=== PATIENT | male | born 1950 | race Caucasian/White ===

== ENCOUNTER 2021-12-20 13:15 | Inpatient (IN) ==
[2021-12-20] MEDS ORDERED: THIAMINE HCL 200 MG in SODIUM CHLORIDE 0.9% 50 ML IV STA (14:54)
[2021-12-20] MEDS ORDERED: SODIUM CHLORIDE 0.9% 1000ML 1,000 ML IV ONE ×2 (14:54→17:50)
--- NOTE | 2021-12-20 14:59 | Emergency Department Note ---
Impression & Plan Acute cholecystitis, Vomiting ED Provider Note NAME: VIANEY LANDEROS AGE: 71 SEX: M : 1950 ARRIVES VIA: Ambulance INFORMANT: Patient, ED PROVIDER(S): Gigi Banuelos DO CHIEF COMPLAINT: Altered mental status exam HPI: Patient is a 71-year-old male who presented to the emergency department via ambulance. The story is somewhat confusing as the patient does not know exactly what happened. According to prehospital personnel nursing and the patient's coworker the patient was found in his car and was shaking. It is unsure if the patient was having a seizure. He denies having any complaints at this time. The patient had an episode of emesis prior to arrival. He denies having any abdominal pain. He denies having any recent fevers or trauma. He denies having any recent traveling. The patient states that he was not seen by his family doctor and does not have a family doctor. The patient states that he feels "of f" but cannot describe exactly what is different today. The patient denies any alcohol or drug use. ROS: See above HPI for pertinent positives & negatives. A total of 10 systems reviewed and were otherwise negative. PAST MEDICAL HISTORY: See Below PAST SURGICAL HISTORY: See Below FAMILY HISTORY: See Below SOCIAL HISTORY: See Below HOME MEDICATIONS: See Below ALLERGIES: See Below VITALS: See Below PHYSICAL EXAMINATION: GENERAL: The patient is awake and nonanxious appearing. He is slow to answer questions but answers appropriately. EYES: The conjunctivae are clear. The pupils are round and reactive. EARS, NOSE, MOUTH AND THROAT: The nose is without any evidence of any deformity. NECK: The neck is nontender and supple. RESPIRATORY: Normal respiratory effort is noted there is no evidence of wheezing rhonchi or rales CARDIOVASCULAR: Regular rate and rhythm noted there no murmurs rubs or gallops normal S1 normal S2. GASTROINTESTINAL: The abdomen is soft and nondistended. There is no specific tenderness guarding rigidity. MUSCULOSKELETAL/EXTREMITIES: There is no evidence of gross deformity full range of motion is noted in the hips and shoulders. SKIN: Skin is cool and diaphoretic. Skin is pale. There is no significant pedal edema. NEUROLOGIC: Patient is awake and oriented to person place and situation. Strength is symmetric. Patellar tendon reflexes are 2+ bilaterally. MEDICAL DECISION MAKING: The patient is a 71-year-old male who presented to the emergency department by ambulance. His presentation was somewhat confusing at first. Apparently he was in his car shaking. This did not appear to be consistent with a seizure but he had emesis on his dyer when he presented on my initial evaluation. The patient was very stoic. I think the shaking could have been from rigors from an infectious source. He did have some right upper quadrant abdominal pain to palpation but no guarding or rigidity. Because of his confusing presentation laboratory and radiographic studies were obtained. I discussed the patient's laboratory and radiographic studies with him. He appears to have signs of carly cystitis on CT the abdomen and pelvis. I discussed his case with the on-call general surgeon. The patient was treated with IV fluids and IV antibiotics. He was reevaluated multiple times. Triage Nursing notes reviewed. Prior medical records reviewed Vital Signs: reviewed and remarkable for low blood pressure. Differential diagnosis: Infection, hypoglycemia, electrolyte abnormalities, overdose, toxicologic, cardiac sources, intracerebral event, neurologic, trauma, as well as other pathologies. ER treatment provided: See below Diagnostics interpreted by me: ECG: EKG was obtained in the emergency department. My interpretation is normal sinus rhythm at 95 bpm. There is no ectopy. Nonspecific ST segment depressions were noted especially in the inferior leads. This was compared to a tracing from December 082021. The changes are new compared to the earlier tracing. Cardiac Monitoring: An order was placed for continuous cardiac monitoring. The monitor shows a rate of 89 bpm with sinus rhythm. Laboratory studies: As stated above and show below. Imaging studies: See below Consultation(s): I discussed this case with Dr. Mccollum who is on-call for general surgery. Past Med/Surg History Medical History No significant past medical history Social History Smoking Status: Current every day smoker Tobacco Type: Cigarettes Cigarettes Per Day: 5; Hx Alcohol Use: No Hx Substance Use: No Preferred Language: [place] Communication Ability: Effective Drawing Press Operator Required: No Beliefs That Will Affect Care: Uatsdin Uatsdin Beliefs: jainism Current Living Situation: Homeless Current Living Situation Comment: homeless 10+ years Feels Safe at Home: Yes Allergies Allergies Allergy/AdvReac Type Severity Reaction Status Date / Time No Known Allergies Allergy Verified 12/20/21 17:26 Home Meds Home Medications Medication Instructions Recorded Confirmed ascorbic acid (vitamin C) 500 mg 0 mg PO DAILY 12/08/21 12/20/21 tablet (Vitamin C) cholecalciferol (vitamin D3) 25 0 mcg PO DAILY 12/08/21 12/20/21 mcg (1,000 unit) tablet (Vitamin D3) multivitamin 1 tab PO DAILY 12/08/21 12/20/21 omega-3 fatty acids 1,000 mg PO 2XWK 12/08/21 12/20/21 Results & Data (ED) Vital Signs Vital Signs - 24 hr 12/20/21 13:13 12/20/21 13:40 12/20/21 16:28 Temperature 37.8 C H 37 C 36.7 C Temperature Source Oral Oral Oral Pulse Rate 92 H Pulse Rate [Apical] 88 89 Pulse Rhythm Regular Pulse Rhythm [Apical] Regular Regular Pulse Strength Normal Pulse Strength [Apical] Normal Normal Respiratory Rate 19 18 19 Respiratory Effort / Characteristics Non-Labored Spontaneous Non-Labored Spontaneous Non-Labored Spontaneous Respiratory Depth Normal Normal Normal Respiratory Pattern Regular Blood Pressure 140/58 L Blood Pressure [Right Arm] 114/57 L 111/53 L Blood Pressure Mean 85 Blood Pressure Mean [Right Arm] 76 72 Blood Pressure Position [Right Arm] Lying Pulse Oximetry 97 96 98 Oxygen Delivery Method Room Air Room Air Nasal Cannula Oxymask Aerosol Mask Ambu-Bag BiPAP CPAP Free Flow/Blow- by High Flow Nasal Cannula Oxyhood Mechanical Vent Nasal CPAP Nebulizer Non-rebreather T-Piece Trach Collar Face Tent Other Room Air Sepsis Recent Fever Within 48 Hours No Sepsis New/Unexplained Change in Mental Status No Sepsis Action Taken by Nursing No Action Required Home Medications Current Medication List: was personally reviewed by me Laboratory Data Attestation: I reviewed the patient's lab results. Result diagrams: 12/20/21 13:30 12/20/21 13:30 Lab Results 12/20/21 12/20/21 12/20/21 Range/Units 13:25 13:30 13:30 WBC 4.11 L (4.8-10.8) K/uL RBC 4.31 L (4.7-6.1) M/uL Hgb 13.3 L (14.0-18.0) g/dL Hct 37.9 L (42-52) % MCV 87.9 (80-100) fL MCH 30.9 (25-34) pg MCHC 35.1 (32-36) g/dL RDW Std Deviation 43.1 (36.4-46.3) fL RDW Coeff of Andrew 13.3 (11.5-14.5) % Plt Count 324 (130-400) K/uL MPV 9.6 (7.4-10.4) fL Immature Gran % (Auto) 0.2 % Neut % (Auto) 91.1 % Lymph % (Auto) 7.8 % [place] % (Auto) 0.2 % Eos % (Auto) 0.5 % Baso % (Auto) 0.2 % Neut # (Auto) 3.74 (1.4-6.5) K/uL Lymph # (Auto) 0.32 L (1.2-3.4) K/uL [place] # (Auto) 0.01 L (0.11-0.59) K/uL Eos # (Auto) 0.02 (0-0.5) K/uL Baso # (Auto) 0.01 (0-0.2) K/uL Immature Gran # (Auto) 0.01 (0.00-0.02) K/uL VBG pH (7.36-7.41) VBG pCO2 (38-50) mmHg VBG pO2 mmHg VBG HCO3 mmol/L VBG O2 Saturation % VBG Base Excess mEq/L Barometric Pressure mm/Hg Sodium 139 (136-145) mmol/L Potassium 3.6 (3.5-5.1) mmol/L Chloride 107 (98-107) mmol/L Carbon Dioxide 22 (21-32) mmol/L Anion Gap 10 (3-11) BUN 20 (6-23) mg/dl Creatinine 0.94 (0.6-1.4) mg/dl Est Cr Clr Drug Dosing 72.3 ml/min Est GFR ( Amer) 92.9 ml/min Est GFR (Non-Af Amer) 80.1 ml/min BUN/Creatinine Ratio 21.3 H (10-20) Glucose 123 H (70-99(Fasting)) mg/dl POC Glucose 132 H (70-99) mg/dl Lactate (0.4-2.0) mmol/L Calcium 8.9 (8.5-10.1) mg/dl Total Bilirubin 0.6 (0.2-1.0) mg/dl AST 44 H (13-39) U/L ALT 42 (7-52) U/L Alkaline Phosphatase 95 (34-104) U/L Ammonia Total Protein 6.7 (6.0-8.3) gm/dl Albumin 3.8 (3.4-5.0) gm/dl Globulin 2.9 (2.5-4.0) gm/dl Albumin/Globulin Ratio 1.3 (0.9-2) Lipase 27 (11-82) U/L Urine Color Urine Appearance (Clear) Urine pH (4.5-7.5) Ur Specific [place] (1.000-1.030) Urine Protein (Negative) Urine Glucose (UA) (Negative) Urine Ketones (Negative) Urine Blood (Negative) Urine Nitrite (Negative) Urine Bilirubin (Negative) Urine Urobilinogen (Negative) Ur Leukocyte Esterase (Negative) Urine WBC (Auto) (0-5) /hpf Urine RBC (Auto) (0-4) /hpf U Hyaline Cast (Auto) (0-5) /lpf U Epithel Cells (Auto) (0-5) /lpf Urine Bacteria (Auto) (Negative) Urine Opiates Screen (Neg) Ur Methadone, Qual (Neg) Urine Barbiturates (Neg) Ur Phencyclidine (PCP) (Neg) U Amphetamin/Meth Scrn (Neg) MDMA (Ecstasy) Screen (Neg) U Benzodiazepines Scrn (Neg) Ur Cocaine Metabolite (Neg) U Marijuana (THC) Screen (Neg) Ethyl Alcohol mg/dL (<10.0) mg/dl 12/20/21 12/20/21 12/20/21 Range/Units 14:57 14:59 14:59 WBC (4.8-10.8) K/uL RBC (4.7-6.1) M/uL Hgb (14.0-18.0) g/dL Hct (42-52) % MCV (80-100) fL MCH (25-34) pg MCHC (32-36) g/dL RDW Std Deviation (36.4-46.3) fL RDW Coeff of Andrew (11.5-14.5) % Plt Count (130-400) K/uL MPV (7.4-10.4) fL Immature Gran % (Auto) % Neut % (Auto) % Lymph % (Auto) % [place] % (Auto) % Eos % (Auto) % Baso % (Auto) % Neut # (Auto) (1.4-6.5) K/uL Lymph # (Auto) (1.2-3.4) K/uL [place] # (Auto) (0.11-0.59) K/uL Eos # (Auto) (0-0.5) K/uL Baso # (Auto) (0-0.2) K/uL Immature Gran # (Auto) (0.00-0.02) K/uL VBG pH (7.36-7.41) VBG pCO2 (38-50) mmHg VBG pO2 mmHg VBG HCO3 mmol/L VBG O2 Saturation % VBG Base Excess mEq/L Barometric Pressure mm/Hg Sodium (136-145) mmol/L Potassium (3.5-5.1) mmol/L Chloride (98-107) mmol/L Carbon Dioxide (21-32) mmol/L Anion Gap (3-11) BUN (6-23) mg/dl Creatinine (0.6-1.4) mg/dl Est Cr Clr Drug Dosing ml/min Est GFR ( Amer) ml/min Est GFR (Non-Af Amer) ml/min BUN/Creatinine Ratio (10-20) Glucose (70-99(Fasting)) mg/dl POC Glucose (70-99) mg/dl Lactate 1.1 (0.4-2.0) mmol/L Calcium (8.5-10.1) mg/dl Total Bilirubin (0.2-1.0) mg/dl AST (13-39) U/L ALT (7-52) U/L Alkaline Phosphatase (34-104) U/L Ammonia Cancelled Total Protein (6.0-8.3) gm/dl Albumin (3.4-5.0) gm/dl Globulin (2.5-4.0) gm/dl Albumin/Globulin Ratio (0.9-2) Lipase (11-82) U/L Urine Color Dark Yellow Urine Appearance Clear (Clear) Urine pH 5.0 (4.5-7.5) Ur Specific [place] 1.033 H (1.000-1.030) Urine Protein 1+ H (Negative) Urine Glucose (UA) Negative (Negative) Urine Ketones Negative (Negative) Urine Blood Negative (Negative) Urine Nitrite Negative (Negative) Urine Bilirubin Negative (Negative) Urine Urobilinogen Negative (Negative) Ur Leukocyte Esterase Negative (Negative) Urine WBC (Auto) 1-5 (0-5) /hpf Urine RBC (Auto) 0-4 (0-4) /hpf U Hyaline Cast (Auto) 1-5 (0-5) /lpf U Epithel Cells (Auto) 5-10 H (0-5) /lpf Urine Bacteria (Auto) Negative (Negative) Urine Opiates Screen (Neg) Ur Methadone, Qual (Neg) Urine Barbiturates (Neg) Ur Phencyclidine (PCP) (Neg) U Amphetamin/Meth Scrn (Neg) MDMA (Ecstasy) Screen (Neg) U Benzodiazepines Scrn (Neg) Ur Cocaine Metabolite (Neg) U Marijuana (THC) Screen (Neg) Ethyl Alcohol mg/dL (<10.0) mg/dl 12/20/21 12/20/21 12/20/21 Range/Units 15:37 15:37 16:44 WBC (4.8-10.8) K/uL RBC (4.7-6.1) M/uL Hgb (14.0-18.0) g/dL Hct (42-52) % MCV (80-100) fL MCH (25-34) pg MCHC (32-36) g/dL RDW Std Deviation (36.4-46.3) fL RDW Coeff of Andrew (11.5-14.5) % Plt Count (130-400) K/uL MPV (7.4-10.4) fL Immature Gran % (Auto) % Neut % (Auto) % Lymph % (Auto) % [place] % (Auto) % Eos % (Auto) % Baso % (Auto) % Neut # (Auto) (1.4-6.5) K/uL Lymph # (Auto) (1.2-3.4) K/uL [place] # (Auto) (0.11-0.59) K/uL Eos # (Auto) (0-0.5) K/uL Baso # (Auto) (0-0.2) K/uL Immature Gran # (Auto) (0.00-0.02) K/uL VBG pH 7.48 H (7.36-7.41) VBG pCO2 35 L (38-50) mmHg VBG pO2 50 mmHg VBG HCO3 25 mmol/L VBG O2 Saturation 87.9 % VBG Base Excess 2.0 mEq/L Barometric Pressure 729.7 mm/Hg Sodium (136-145) mmol/L Potassium (3.5-5.1) mmol/L Chloride (98-107) mmol/L Carbon Dioxide (21-32) mmol/L Anion Gap (3-11) BUN (6-23) mg/dl Creatinine (0.6-1.4) mg/dl Est Cr Clr Drug Dosing ml/min Est GFR ( Amer) ml/min Est GFR (Non-Af Amer) ml/min BUN/Creatinine Ratio (10-20) Glucose (70-99(Fasting)) mg/dl POC Glucose (70-99) mg/dl Lactate (0.4-2.0) mmol/L Calcium (8.5-10.1) mg/dl Total Bilirubin (0.2-1.0) mg/dl AST (13-39) U/L ALT (7-52) U/L Alkaline Phosphatase (34-104) U/L Ammonia 33.0 Total Protein (6.0-8.3) gm/dl Albumin (3.4-5.0) gm/dl Globulin (2.5-4.0) gm/dl Albumin/Globulin Ratio (0.9-2) Lipase (11-82) U/L Urine Color Urine Appearance (Clear) Urine pH (4.5-7.5) Ur Specific [place] (1.000-1.030) Urine Protein (Negative) Urine Glucose (UA) (Negative) Urine Ketones (Negative) Urine Blood (Negative) Urine Nitrite (Negative) Urine Bilirubin (Negative) Urine Urobilinogen (Negative) Ur Leukocyte Esterase (Negative) Urine WBC (Auto) (0-5) /hpf Urine RBC (Auto) (0-4) /hpf U Hyaline Cast (Auto) (0-5) /lpf U Epithel Cells (Auto) (0-5) /lpf Urine Bacteria (Auto) (Negative) Urine Opiates Screen (Neg) Ur Methadone, Qual (Neg) Urine Barbiturates (Neg) Ur Phencyclidine (PCP) (Neg) U Amphetamin/Meth Scrn (Neg) MDMA (Ecstasy) Screen (Neg) U Benzodiazepines Scrn (Neg) Ur Cocaine Metabolite (Neg) U Marijuana (THC) Screen (Neg) Ethyl Alcohol mg/dL < 10.0 (<10.0) mg/dl 12/20/21 Range/Units Unknown WBC (4.8-10.8) K/uL RBC (4.7-6.1) M/uL Hgb (14.0-18.0) g/dL Hct (42-52) % MCV (80-100) fL MCH (25-34) pg MCHC (32-36) g/dL RDW Std Deviation (36.4-46.3) fL RDW Coeff of Andrew (11.5-14.5) % Plt Count (130-400) K/uL MPV (7.4-10.4) fL Immature Gran % (Auto) % Neut % (Auto) % Lymph % (Auto) % [place] % (Auto) % Eos % (Auto) % Baso % (Auto) % Neut # (Auto) (1.4-6.5) K/uL Lymph # (Auto) (1.2-3.4) K/uL [place] # (Auto) (0.11-0.59) K/uL Eos # (Auto) (0-0.5) K/uL Baso # (Auto) (0-0.2) K/uL Immature Gran # (Auto) (0.00-0.02) K/uL VBG pH (7.36-7.41) VBG pCO2 (38-50) mmHg VBG pO2 mmHg VBG HCO3 mmol/L VBG O2 Saturation % VBG Base Excess mEq/L Barometric Pressure mm/Hg Sodium (136-145) mmol/L Potassium (3.5-5.1) mmol/L Chloride (98-107) mmol/L Carbon Dioxide (21-32) mmol/L Anion Gap (3-11) BUN (6-23) mg/dl Creatinine (0.6-1.4) mg/dl Est Cr Clr Drug Dosing ml/min Est GFR ( Amer) ml/min Est GFR (Non-Af Amer) ml/min BUN/Creatinine Ratio (10-20) Glucose (70-99(Fasting)) mg/dl POC Glucose (70-99) mg/dl Lactate (0.4-2.0) mmol/L Calcium (8.5-10.1) mg/dl Total Bilirubin (0.2-1.0) mg/dl AST (13-39) U/L ALT (7-52) U/L Alkaline Phosphatase (34-104) U/L Ammonia Total Protein (6.0-8.3) gm/dl Albumin (3.4-5.0) gm/dl Globulin (2.5-4.0) gm/dl Albumin/Globulin Ratio (0.9-2) Lipase (11-82) U/L Urine Color Urine Appearance (Clear) Urine pH (4.5-7.5) Ur Specific [place] (1.000-1.030) Urine Protein (Negative) Urine Glucose (UA) (Negative) Urine Ketones (Negative) Urine Blood (Negative) Urine Nitrite (Negative) Urine Bilirubin (Negative) Urine Urobilinogen (Negative) Ur Leukocyte Esterase (Negative) Urine WBC (Auto) (0-5) /hpf Urine RBC (Auto) (0-4) /hpf U Hyaline Cast (Auto) (0-5) /lpf U Epithel Cells (Auto) (0-5) /lpf Urine Bacteria (Auto) (Negative) Urine Opiates Screen Neg (Neg) Ur Methadone, Qual Neg (Neg) Urine Barbiturates Neg (Neg) Ur Phencyclidine (PCP) Neg (Neg) U Amphetamin/Meth Scrn Neg (Neg) MDMA (Ecstasy) Screen Neg (Neg) U Benzodiazepines Scrn Neg (Neg) Ur Cocaine Metabolite Neg (Neg) U Marijuana (THC) Screen Neg (Neg) Ethyl Alcohol mg/dL (<10.0) mg/dl Administered Medications Discontinued Medications Sodium Chloride (Nss 1000ml) 1,000 mls @ 999 mls/hr IV .[id number] ONE Stop: 12/20/21 15:54 Last Admin: 12/20/21 16:25 Dose: 999 mls/hr Documented by: [id number] Imaging Data Radiologist's Impression: Abdomen/Pelvis CT 12/20/21 14:54 CT SCAN OF THE ABDOMEN AND PELVIS WITHOUT IV CONTRAST CLINICAL HISTORY: Nausea and vomiting. COMPARISON STUDY: Abdominal CT dated 12/08/2021. TECHNIQUE: CT scan of the abdomen and pelvis is performed from the lung bases to the proximal femora. Images are reviewed in the axial, sagittal, and coronal planes. IV contrast was not administered for this examination. Note that the examination was performed in suboptimal fashion without oral and IV contrast. A dose lowering technique was utilized adhering to the principles of ALARA. FINDINGS: Lung bases: The heart is mildly enlarged and without pericardial effusion. There are coronary artery calcifications. The lung bases are clear noting dependent atelectasis. Liver: The unenhanced liver is enlarged, measuring 21.1 cm in length. The liver is otherwise normal in contour and attenuation. There is no intrahepatic biliary ductal dilatation. Periportal edema is noted. Gallbladder: The gallbladder is mildly distended. The gallbladder wall is thicke beverly and there is pericholecystic inflammation and fluid. Findings are consistent with acute cholecystitis. Spleen: Normal in size and attenuation. Pancreas: Calcifications of the pancreatic head are unchanged. The unenhanced pancreas is otherwise grossly unremarkable. Adrenal glands: Unremarkable. Kidneys: The unenhanced kidneys are normal in size and without hydronephrosis. There are no renal calculi identified. There is no evidence of contour deforming renal mass lesion. Abdominal vasculature: The abdominal aorta is normal in course and caliber noting mild to moderate atherosclerotic calcification. Bowel: There are scattered colonic diverticula without CT evidence of acute diverticulitis. No bowel obstruction is seen. Mild fecal retention is noted in the colon. A tiny duodenal diverticulum is incidentally noted. The appendix is well-visualized and normal. Peritoneum: There is no intraperitoneal free air or abdominal ascites. Lymphadenopathy: None. Pelvic viscera: The prostate gland is mildly enlarged and heterogeneous noting median lobe hypertrophy. The bladder wall is thickened and trabeculated indicating chronic outlet obstruction. Skeletal structures: The skeletal structures are osteopenic. There is mild lumbosacral spondylosis. No lytic or blastic lesions are seen. IMPRESSION: 1. Findings are consistent with severe acute cholecystitis. Surgical consultation is advised. 2. There is no intra or extrahepatic biliary ductal dilatation. 3. Mild hepatomegaly. 4. Additional findings as above. ACT 112: Negative or not required by law. Electronically signed by: Max Finney M.D. 12/20/2021 5:[address] 12/20/21 14:54 CT SCAN OF THE CERVICAL SPINE CLINICAL HISTORY: Change in mental status. Neck pain. COMPARISON STUDY: No priors. TECHNIQUE: CT scan of the cervical spine is performed from the skull base to the upper thoracic spine. Images are reviewed in the axial, sagittal, and coronal planes. IV contrast was not administered for this examination. A dose lowering technique was utilized adhering to the principles of ALARA. CT DOSE: 1620.03 mGy.cm FINDINGS: Skeletal structures: The skeletal structures are osteopenic. There is no evidence of fracture or subluxation involving the cervical spine. Vertebral body height and alignment are maintained. There are tiny anterior osteophytes. The odontoid process and lateral masses are intact. The atlantoaxial articulation is preserved noting mild productive degenerative change. The spinous processes appear intact. There is mild multilevel facet arthropathy. Intervertebral discs: Minimal disc space narrowing is seen throughout the cervical spine. Central canal: Posterior disc osteophyte complexes at C3-C4, C4-C5, and C5-C6 may contribute to mild acquired compromise the central canal. Soft tissues: The prevertebral and paraspinous soft tissues are within normal limits. There is mild atherosclerotic calcification of the carotid bulbs. Calvarium: The visualized calvarium at the skull base appears intact. Brain parenchyma: Partially visualized brain parenchyma at the skull base is within normal limits. Sinuses and mastoids: The visualized paranasal sinuses are clear. The mastoid air cells are well pneumatized. Lung apices: There is a calcified granuloma at the left apex. Apical lung parenchyma is otherwise clear as visualized. IMPRESSION: No acute osseous abnormality is seen involving the cervical spine. ACT 112: Negative or not required by law. Electronically signed by: Max Finney M.D. 12/20/2021 5:[address] 12/20/21 14:54 CT SCAN OF THE BRAIN WITHOUT IV CONTRAST CLINICAL HISTORY: Change in mental status. COMPARISON STUDY: No priors. TECHNIQUE: Unenhanced axial CT scan of the brain is performed from the vertex to the skull base. A dose lowering technique was utilized adhering to the principles of ALARA. FINDINGS: Brain parenchyma: There are age-related involutional changes noting minimal subcortical and periventricular microangiopathic change. There is no hemorrhage, mass effect, or evidence of acute territorial ischemia by CT criteria. Carrizales- white matter differentiation is preserved. No extra-axial fluid collection is seen. Ventricles, sulci, cisterns: Prominent secondary to involutional change. Intracranial vasculature: There is atherosclerotic calcification of the cavernous carotid and vertebral arteries. Calvarium: Unremarkable. Soft tissues: A 1.7 cm calcified sebaceous cyst is noted in the right posterior scalp. Sinuses and mastoids: The visualized paranasal sinuses are clear. The mastoid air cells are well pneumatized. Orbits: The bony orbits are grossly intact. IMPRESSION: There is no hemorrhage, mass effect, or evidence of acute territorial ischemia by CT criteria. ACT 112: Negative or not required by law. Electronically signed by: Max Finney M.D. 12/20/2021 5:18 PM Chest X-Ray 12/20/21 14:56 XR chest 1V portable CLINICAL HISTORY: Altered mental status. COMPARISON STUDY: No previous studies for comparison. FINDINGS: Lung volumes are normal. Lungs are clear. There is no pneumothorax or pleural effusion. Cardiac size is normal. Mediastinal contours are normal. There is no evidence for pulmonary edema. IMPRESSION: No acute cardiopulmonary findings. ACT 112: Negative or not required by law. Electronically signed by: Jacob Lozada M.D. 12/20/2021 3:44 PM Discharge Plan Visit Data Chief Complaint: Illness ED Provider: Gigi Banuelos Discharge Problem: Acute cholecystitis, Vomiting Patient Disposition: Being Evaluated by Surgeon Forms Stand Alone Forms: [facility] [place] Prescriptions Prescriptions: No Action multivitamin Tablet 1 tab PO DAILY RF: 0 ascorbic acid (vitamin C) [Vitamin C] 500 mg Tablet 0 mg PO DAILY RF: 0 Fish Oil Capsule 1,000 mg PO 2XWK RF: 0 cholecalciferol (vitamin D3) [Vitamin D3] 25 mcg (1,000 unit) Tablet 0 mcg PO DAILY RF: 0 Referrals Referrals: PCP,NO [Primary Care Provider] -
[2021-12-20 15:44] LABS: Basophils # (auto) 0.01 K/uL (0-0.2); Basophils % (auto) 0.2 %; Eosinophils # (auto) 0.02 K/uL (0-0.5); Eosinophils % (auto) 0.5 %; Hematocrit (blood only) 37.9 % (42-52); Hemoglobin 13.3 g/dL (14.0-18.0); Immature Granulocytes # (auto) 0.01 K/uL (0.00-0.02); Immature Granulocytes % (auto) 0.2 %; Lymphocytes # (auto) 0.32 K/uL (1.2-3.4); Lymphocytes % (auto) 7.8 %; Mean Corpuscular Hemoglobin 30.9 pg (25-34); Mean Corpuscular Hgb Conc 35.1 g/dL (32-36); Mean Corpuscular Volume 87.9 fL (80-100); Mean Platelet Volume 9.6 fL (7.4-10.4); Monocytes # (auto) 0.01 K/uL (0.11-0.59); Monocytes % (auto) 0.2 %; Neutrophils # (auto) 3.74 K/uL (1.4-6.5); Neutrophils % (auto) 91.1 %; Platelet Count 324 K/uL (130-400); RDW Coefficient of Variation 13.3 % (11.5-14.5); RDW Standard Deviation 43.1 fL (36.4-46.3); Red Blood Count 4.31 M/uL (4.7-6.1); White Blood Count 4.11 K/uL (4.8-10.8)
--- NOTE | 2021-12-20 15:46 | XRay Report ---
XR chest 1V portable CLINICAL HISTORY: Altered mental status. COMPARISON STUDY: No previous studies for comparison. FINDINGS: Lung volumes are normal. Lungs are clear. There is no pneumothorax or pleural effusion. Car diac size is normal. Mediastinal contours are normal. There is no evidence for pulmonary edema. IMPRESSION: No acute cardiopulmonary findings. ACT 112: Negative or not required by law. Electronically signed by: Jacob Lozada M.D. 12/20/2021 3:44 PM
[2021-12-20 15:59] LABS: Oxygen Saturation VBG 87.9 %; pH VBG 7.48 (7.36-7.41)
[2021-12-20 16:32] LABS: Appearance Urine Clear (Clear); Bacteria Urine Automated Negative (Negative); Bilirubin Urine Negative (Negative); Blood Urine Negative (Negative); Color Urine Dark Yellow; Glucose Urine UA Negative (Negative); Ketones Urine Negative (Negative); Leukocyte Esterase Urine Negative (Negative); Nitrite Urine Negative (Negative); Protein Urine 1+ (Negative); RBC Urine Automated 0-4 /hpf (0-4); Specific Gravity Urine 1.033 (1.000-1.030); Urobilinogen Urine Negative (Negative)
[2021-12-20 16:42] LABS: Albumin Globulin Ratio 1.3 (0.9-2); Albumin Level 3.8 gm/dl (3.4-5.0); BUN Creatinine Ratio 21.3 (10-20); Bilirubin,Total 0.6 mg/dl (0.2-1.0); Calcium 8.9 mg/dl (8.5-10.1); Creatinine Clr Calc Pharmacy 72.3 ml/min; Est GFR (African American) 92.9 ml/min; Est GFR (Non-African American) 80.1 ml/min; Globulin 2.9 gm/dl (2.5-4.0); Potassium 3.6 mmol/L (3.5-5.1); Total Protein 6.7 gm/dl (6.0-8.3)
[2021-12-20 16:57] LABS: Amphetamines+Metham, Urine Neg (Neg); Barbiturates, Urine Neg (Neg); Benzodiazepine, Urine Neg (Neg); Cocaine, Urine Neg (Neg); MDMA (Ecstacy), Urine Neg (Neg); Methadone, Urine Neg (Neg); Opiate, Urine Neg (Neg); Phencyclidine, Urine Neg (Neg)
--- NOTE | 2021-12-20 17:20 | CT Scan Report ---
CT SCAN OF THE BRAIN WITHOUT IV CONTRAST CLINICAL HISTORY: Change in mental status. COMPARISON STUDY: No priors. TECHNIQUE: Unenhanced axial CT scan of the brain is performed from the vertex to the skull base. A do se lowering technique was utilized adhering to the principles of ALARA. FINDINGS: Brain parenchyma: There are age-related involutional changes noting minimal subcortical and perivent ricular microangiopathic change. There is no hemorrhage, mass effect, or evidence of acute territoria l ischemia by CT criteria. Carrizales-white matter differentiation is preserved. No extra-axial fluid colle ction is seen. Ventricles, sulci, cisterns: Prominent secondary to involutional change. Intracranial vasculature: There is atherosclerotic calcification of the cavernous carotid and vertebr al arteries. Calvarium: Unremarkable. Soft tissues: A 1.7 cm calcified sebaceous cyst is noted in the right posterior scalp. Sinuses and mastoids: The visualized paranasal sinuses are clear. The mastoid air cells are well pneu matized. Orbits: The bony orbits are grossly intact. IMPRESSION: There is no hemorrhage, mass effect, or evidence of acute territorial ischemia by CT fadi kraft. ACT 112: Negative or not required by law. Electronically signed by: Max Finney M.D. 12/20/2021 5:18 PM
--- NOTE | 2021-12-20 17:25 | CT Scan Report ---
CT SCAN OF THE CERVICAL SPINE CLINICAL HISTORY: Change in mental status. Neck pain. COMPARISON STUDY: No priors. TECHNIQUE: CT scan of the cervical spine is performed from the skull base to the upper thoracic spine . Images are reviewed in the axial, sagittal, and coronal planes. IV contrast was not administered fo r this examination. A dose lowering technique was utilized adhering to the principles of ALARA. CT DOSE: 1620.03 mGy.cm FINDINGS: Skeletal structures: The skeletal structures are osteopenic. There is no evidence of fracture or subl uxation involving the cervical spine. Vertebral body height and alignment are maintained. There are t iny anterior osteophytes. The odontoid process and lateral masses are intact. The atlantoaxial articu lation is preserved noting mild productive degenerative change. The spinous processes appear intact. There is mild multilevel facet arthropathy. Intervertebral discs: Minimal disc space narrowing is seen throughout the cervical spine. Central canal: Posterior disc osteophyte complexes at C3-C4, C4-C5, and C5-C6 may contribute to mild acquired compromise the central canal. Soft tissues: The prevertebral and paraspinous soft tissues are within normal limits. There is mild a therosclerotic calcification of the carotid bulbs. Calvarium: The visualized calvarium at the skull base appears intact. Brain parenchyma: Partially visualized brain parenchyma at the skull base is within normal limits. Sinuses and mastoids: The visualized paranasal sinuses are clear. The mastoid air cells are well pneu matized. Lung apices: There is a calcified granuloma at the left apex. Apical lung parenchyma is otherwise wendi ar as visualized. IMPRESSION: No acute osseous abnormality is seen involving the cervical spine. ACT 112: Negative or not required by law. Electronically signed by: Max Finney M.D. 12/20/2021 5:23 PM
--- NOTE | 2021-12-20 17:45 | CT Scan Report ---
CT SCAN OF THE ABDOMEN AND PELVIS WITHOUT IV CONTRAST CLINICAL HISTORY: Nausea and vomiting. COMPARISON STUDY: Abdominal CT dated 12/08/2021. TECHNIQUE: CT scan of the abdomen and pelvis is performed from the lung bases to the proximal femora. Images are reviewed in the axial, sagittal, and coronal planes. IV contrast was not administered for this examination. Note that the examination was performed in suboptimal fashion without oral and IV contrast. A dose lowering technique was utilized adhering to the principles of ALARA. FINDINGS: Lung bases: The heart is mildly enlarged and without pericardial effusion. There are coronary artery calcifications. The lung bases are clear noting dependent atelectasis. Liver: The unenhanced liver is enlarged, measuring 21.1 cm in length. The liver is otherwise normal i n contour and attenuation. There is no intrahepatic biliary ductal dilatation. Periportal edema is no tenisha. Gallbladder: The gallbladder is mildly distended. The gallbladder wall is thickened and there is maggi cholecystic inflammation and fluid. Findings are consistent with acute cholecystitis. Spleen: Normal in size and attenuation. Pancreas: Calcifications of the pancreatic head are unchanged. The unenhanced pancreas is otherwise g rossly unremarkable. Adrenal glands: Unremarkable. Kidneys: The unenhanced kidneys are normal in size and without hydronephrosis. There are no renal marjan culi identified. There is no evidence of contour deforming renal mass lesion. Abdominal vasculature: The abdominal aorta is normal in course and caliber noting mild to moderate at herosclerotic calcification. Bowel: There are scattered colonic diverticula without CT evidence of acute diverticulitis. No bowel obstruction is seen. Mild fecal retention is noted in the colon. A tiny duodenal diverticulum is inci dentally noted. The appendix is well-visualized and normal. Peritoneum: There is no intraperitoneal free air or abdominal ascites. Lymphadenopathy: None. Pelvic viscera: The prostate gland is mildly enlarged and heterogeneous noting median lobe hypertroph y. The bladder wall is thickened and trabeculated indicating chronic outlet obstruction. Skeletal structures: The skeletal structures are osteopenic. There is mild lumbosacral spondylosis. N o lytic or blastic lesions are seen. IMPRESSION: 1. Findings are consistent with severe acute cholecystitis. Surgical consultation is advised. 2. There is no intra or extrahepatic biliary ductal dilatation. 3. Mild hepatomegaly. 4. Additional findings as above. ACT 112: Negative or not required by law. Electronically signed by: Max Finney M.D. 12/20/2021 5:42 PM
[2021-12-20] MEDS ORDERED: PIPERACILL/TAZOBAC CONSULT ACTIVE PRN ×2 (17:50→20:40)
[2021-12-20] MEDS ORDERED: PIPERACILLIN/TAZOBACTAM 4.5 GM/120 ML BAG IV ONE (17:50)
--- NOTE | 2021-12-20 19:13 | History & Physical Report ---
Date of Service December 20, 2021 Assessment & Plan (1) Abnormal CT of the abdomen: Plan: 71 yr old man with possible severe acute cholecystitis on CT scan but minimal pain or tenderness on exam. Will treat with IV abx. Discussed checking HIDA scan to confirm acute cholecystitis as his clinical presentation does not match his CT findings well. Should HIDA confirm acute cholecystitis then we discussed the benefit of laparoscopic cholecystectomy. Risks of conversion to open, bile leak, diarrhea with need for medications to control briefly reviewed. All questions answered. Will keep npo until results are back. Present on Admission?: Yes History of Present Illness Chief Complaint: shakes/ memory loss Primary Care Provider: NO PCP 71 yr old man who was brought by ambulance to the ER when a coworker found him in his car, confused and with severe shakes/ rigors. Pt notes his memory is limited for the event and he feels "unfocused". He does recall that he had some epigastric abdominal pain intermittently in the few days prior to the event. No nausea or vomiting at that time but he did have a bout of emesis in the ambulance. He was seen in the ER on 12/15/2020 and again on 12/08/2021 for epigastric abdominal pain. CT scans on both occasions were negative. He denies a ny change in bowel habits. No family history of gallbladder disease. No prior abdominal operations. Currently, he denies any abdominal pain. No nausea or vomiting. No further chills. Main remaining symptom is that of memory issues with loss of focus/ cloudy feeling. Allergies Allergy/AdvReac Type Severity Reaction Status Date / Time No Known Allergies Allergy Verified 12/20/21 17:26 Home Medications Medication Instructions Recorded Confirmed Type ascorbic acid (vitamin C) 500 mg 0 mg PO DAILY 12/08/21 12/20/21 History tablet (Vitamin C) cholecalciferol (vitamin D3) 25 0 mcg PO DAILY 12/08/21 12/20/21 History mcg (1,000 unit) tablet (Vitamin D3) multivitamin 1 tab PO DAILY 12/08/21 12/20/21 History omega-3 fatty acids 1,000 mg PO 2XWK 12/08/21 12/20/21 History Past Med/Surg History Medical History No significant past medical history Social History Smoking Status: Current every day smoker Tobacco Type: Cigarettes Cigarettes Per Day: 5; Hx Alcohol Use: No Hx Substance Use: No Preferred Language: Welsh Communication Ability: Effective Sas Etl Developer Required: No Beliefs That Will Affect Care: Mormon Mormon Beliefs: buddhism Current Living Situation: Homeless Current Living Situation Comment: homeless 10+ years Feels Safe at Home: Yes Review of Systems Constitutional: + chills; no fever Eyes: no problem reported Ear, Nose, Mouth, Throat: no problem reported Respiratory: no problem reported Cardiovascular: no problem reported Gastrointestinal: as per Subjective / HPI Genitourinary: no problem reported Musculoskeletal: no problem reported Neurologic: + confusion and + memory loss; no gait abnormality, no generalized weakness, no abnormal movements and no abnormal speech Psychiatric: no problem reported Physical Exam Constitutional: WD/WN, vitals as above Eyes: PERRL, conjunctivae normal, anicteric sclerae Neck: trachea midline, no thyromegaly Respiratory: normal respiratory effort, lungs clear to auscultation Cardiovascular: RRR, no murmur, no edema Gastrointestinal (Abdomen): normal bowel sounds, soft, nontender, no hepatosplenomegaly Musculoskeletal: Extremities: extremities normal to inspection Neurologic: moves all extremities and awake; no focal motor deficits slow to answer questions Psychiatric: A+Ox3, euthymic affect Results & Data Results & Data ([facility]) Vital Signs (Past 12 Hours) Vital Signs Temp Pulse Pulse Resp BP BP Pulse Ox 12/20/21 18:00 36.9 C 84 20 134/72 96 12/20/21 16:28 36.7 C 89 19 111/53 L 98 12/20/21 13:40 37 C 92 H 18 140/58 L 96 12/20/21 13:13 37.8 C H 88 19 114/57 L 97 Laboratory Results Abnormal lab results 12/20/21 12/20/21 12/20/21 Range/Units 13:25 13:30 13:30 WBC 4.11 L (4.8-10.8) K/uL RBC 4.31 L (4.7-6.1) M/uL Hgb 13.3 L (14.0-18.0) g/dL Hct 37.9 L (42-52) % Lymph # (Auto) 0.32 L (1.2-3.4) K/uL [place] # (Auto) 0.01 L (0.11-0.59) K/uL VBG pH (7.36-7.41) VBG pCO2 (38-50) mmHg BUN/Creatinine Ratio 21.3 H (10-20) Glucose 123 H (70-99(Fasting)) mg/dl POC Glucose 132 H (70-99) mg/dl AST 44 H (13-39) U/L Ur Specific [place] (1.000-1.030) Urine Protein (Negative) U Epithel Cells (Auto) (0-5) /lpf 12/20/21 12/20/21 Range/Units 14:57 15:37 WBC (4.8-10.8) K/uL RBC (4.7-6.1) M/uL Hgb (14.0-18.0) g/dL Hct (42-52) % Lymph # (Auto) (1.2-3.4) K/uL [place] # (Auto) (0.11-0.59) K/uL VBG pH 7.48 H (7.36-7.41) VBG pCO2 35 L (38-50) mmHg BUN/Creatinine Ratio (10-20) Glucose (70-99(Fasting)) mg/dl POC Glucose (70-99) mg/dl AST (13-39) U/L Ur Specific [place] 1.033 H (1.000-1.030) Urine Protein 1+ H (Negative) U Epithel Cells (Auto) 5-10 H (0-5) /lpf Diagnostic Findings CT SCAN OF THE ABDOMEN AND PELVIS WITHOUT IV CONTRAST CLINICAL HISTORY: Nausea and vomiting. COMPARISON STUDY: Abdominal CT dated 12/08/2021. TECHNIQUE: CT scan of the abdomen and pelvis is performed from the lung bases to the proximal femora. Images are reviewed in the axial, sagittal, and coronal planes. IV contrast was not administered for this examination. Note that the examination was performed in suboptimal fashion without oral and IV contrast. A dose lowering technique was utilized adhering to the principles of ALARA. FINDINGS: Lung bases: The heart is mildly enlarged and without pericardial effusion. There are coronary artery calcifications. The lung bases are clear noting dependent atelectasis. Liver: The unenhanced liver is enlarged, measuring 21.1 cm in length. The liver is otherwise normal in contour and attenuation. There is no intrahepatic biliary ductal dilatation. Periportal edema is noted. Gallbladder: The gallbladder is mildly distended. The gallbladder wall is thickened and there is pericholecystic inflammation and fluid. Findings are consistent with acute cholecystitis. Spleen: Normal in size and attenuation. Pancreas: Calcifications of the pancreatic head are unchanged. The unenhanced pancreas is otherwise grossly unremarkable. Adrenal glands: Unremarkable. Kidneys: The unenhanced kidneys are normal in size and without hydronephrosis. There are no renal calculi identified. There is no evidence of contour deforming renal mass lesion. Abdominal vasculature: The abdominal aorta is normal in course and caliber noting mild to moderate atherosclerotic calcification. Bowel: There are scattered colonic diverticula without CT evidence of acute diverticulitis. No bowel obstruction is seen. Mild fecal retention is noted in the colon. A tiny duodenal diverticulum is incidentally noted. The appendix is well-visualized and normal. Peritoneum: There is no intraperitoneal free air or abdominal ascites. Lymphadenopathy: None. Pelvic viscera: The prostate gland is mildly enlarged and heterogeneous noting median lobe hypertrophy. The bladder wall is thickened and trabeculated indicating chronic outlet obstruction. Skeletal structures: The skeletal structures are osteopenic. There is mild lumbosacral spondylosis. No lytic or blastic lesions are seen. IMPRESSION: 1. Findings are consistent with severe acute cholecystitis. Surgical consultation is advised. 2. There is no intra or extrahepatic biliary ductal dilatation. 3. Mild hepatomegaly. CT scan head and C spine normal. CXR OK. Code Status & VTE Plan VTE Prophylaxis Plan VTE Prophylaxis will be ordered: No
[2021-12-20] MEDS ORDERED: MoRPHine SULFATE 2 MG/ML CARP IV PRN (20:40)
[2021-12-20] MEDS ORDERED: ONDANSETRON INJ 2 MG/ML 2 ML VIAL IV PRN (20:40)
[2021-12-20] MEDS ORDERED: oxyCODONE/ACETAMINOPHEN 5mg/325mg TAB PO PRN ×2 (20:40)
[2021-12-20] MEDS ORDERED: MoRPHine SULFATE 4 MG/ML 1 ML CARP\\VIAL IV PRN (20:40)
[2021-12-20] MEDS: LACTATED RINGER'S 1,000 ML IV SCH (21:00)
--- NOTE | 2021-12-20 22:44 | Electrocardiogram Report ---
Test Reason : Blood Pressure : / mmHG Vent. Rate : 095 BPM Atrial Rate : 095 BPM P-R Int : 148 ms QRS Dur : 076 ms QT Int : 394 ms P-R-T Axes : 073 060 074 degrees QTc Int : 495 ms Normal sinus rhythm Prolonged QT Nonspecific T wave abnormality Abnormal ECG When compared with ECG of 08-DEC-2021 02:49, Vent. rate has increased BY 42 BPM QT has lengthened Confirmed by Neville Patterson ([id number]) on 12/20/2021 10:43:49 PM Referred By: REFERRED SELF Confirmed By:Neville Patterson
[2021-12-20] MEDS: PIPERACILLIN/TAZOBACTAM 3.375 GM in DEXTROSE 5% 100 ML IV SCH (23:45)
[2021-12-20 23:49] LABS: Base Excess ABG -0.1 mEq/L (-9-1.8); HCO3 ABG 22 mmol/L (19-24); Oxygen Saturation ABG 95.6 % (90-95); PCO2 ABG 29 mmHg (35-46); PO2 ABG 69 mmHg (80-95)
[2021-12-20 23:52] LABS: Allen Test POS (Pos)
[2021-12-21 00:36] LABS: Influenza A virus by PCR Negative (Neg); Influenza B virus by PCR Negative (Neg); RSV by PCR Negative (Neg); SARS CoV2 RNA(COVID-19) InHosp NEGATIVE (Negative)
--- NOTE | 2021-12-21 01:25 | Consultation Report ---
DATE OF CONSULTATION: 12/20/2021. CHIEF COMPLAINT: Shaking chills, possible cholecystitis. HISTORY OF PRESENT ILLNESS: This is a 71-year-old male with no significant past medical history, who presents with shaking chills, violent shaking. The patient states he is here because of violent shaking. The patient is somewhat of a poor historian, speaking in low voices and taking time to answer, but seems to be alert and oriented, answering appropriately, but could not give much history. Says his hands were violently shaking, that is why he is here. Afebrile, seems to have some cough. He states he smokes quarter pack a day. He has some headache, some blurred visions. He attributes it to not eating anything for the last 24 hours. No nausea, no vomiting, no chest pain, no shortness of breath, no abdominal pain. Normal bowel and bladder movements. Hemodynamics are okay. The patient was here with abdominal pain on 12/08/2021. At that time, a CT scan was done, it was unremarkable and he was sent home. Today CAT scan is showing acute cholecystitis. Surgery admitted the patient, planning for HIDA scan, and he is on fluids and Zosyn. The patient was in the hospital in December of 2020 with acute gallstone pancreatitis, but signed out AMA at that time. His venous blood gases are okay in the ER. Labs showed some mild leukopenia and lymphopenia. Liver function and creatinine are okay. Urinalysis negative. Urine drug screen is negative. Urine ethyl alcohol level is less than 10. SARS-CoV-2 rapid test is negative. ALLERGIES: No known drug allergies. PAST MEDICAL HISTORY: The patient denies any past medical history. PAST SURGICAL HISTORY: Could not get any surgical history. MEDICATIONS: Seems to be taking multivitamins, vitamin D, omega fish oil, and vitamin C. FAMILY HISTORY: Says there is a history of cancer and heart disease in the family. SOCIAL HISTORY: Smokes 1/4 pack a day. Denies any alcohol use. REVIEW OF SYSTEMS: As per HPI. Could not get complete review of systems. The patient is somewhat of a poor historian. PHYSICAL EXAMINATION: GENERAL: The patient is alert, awake, and oriented x3, but answers in a low voice and takes time to answer. VITAL SIGNS: Temperature 37, pulse 80, respiratory rate 16, blood pressure 148/71, oxygen 96% on room air. HEENT: Atraumatic. Speech has low voice. Has no facial droop. CARDIOVASCULAR: S1 and S2 heard. Regular rate and rhythm. No murmur, no gallop. RESPIRATORY SYSTEM: Normal AP diameter. No accessory muscle use. No wheezing, no crackles. ABDOMEN: Soft, bowel sounds present, nontender, no distention. CENTRAL NERVOUS SYSTEM: Alert and awake, oriented x3. Recent and remote memory intact. Speech is with low voice. Takes time to answer. Obeys simple commands, answers simple questions. Moves extremities. EXTREMITIES: No edema, no erythema. LABORATORY DATA: WBC 4.1, hemoglobin 13.3, hematocrit 37.9, platelets 324. Venous blood gases show pH of 7.48, pCO2 of 35. Sodium 139, potassium 3.6, chloride 107, bicarbonate 22, BUN 20, creatinine 0.9, serum glucose 123, lactate 1.1, calcium 8.9, total bilirubin 0.6, AST 44, ALT 42, alkaline phosphatase 95. [id number]. Urinalysis, +1 protein, otherwise unremarkable. Urine drug screen negative. Ethyl alcohol less than 10. SARS-CoV-2 rapid test negative. IMAGING DATA: Chest x-ray, no acute cardiopulmonary findings. CT of the head, there is no hemorrhage, mass effect or evidence of acute territorial ischemia. Cervical spine CT, no acute findings. CT of abdomen and pelvis without IV contrast shows consistent severe acute cholecystitis, surgical consultation advised. No intra or extrahepatic biliary ductal dilatation. Mild hepatomegaly. EKG: Normal sinus rhythm at a rate of 95, nonspecific T-wave abnormalities. ASSESSMENT AND PLAN: This is a 71-year-old male who presents with violent shaking chills, who was admitted for acute cholecystitis. 1. Possible acute cholecystitis: Currently on IV fluids and Zosyn. Surgery wants to wait for HIDA scan before proceeding with any procedure, but the patient is still continuing to have violent shaking chills. Somewhat altered mental status, but answering appropriately, taking time to answer. His venous blood gases are okay. His hemodynamics are stable. Urine drug screen is okay. The patient denies any regular alcohol use. CT of the head was okay. Will follow the lactic acid. His ammonia level is also okay. Will continue to monitor. If not improving, will consider doing EEG and MRI scan and neuro evaluation. For now, will continue with current management and follow the repeat labs. 2. Tobacco abuse: Needs counseling. 3. Deep venous thrombosis prophylaxis: Sequential compression devices for now. DISPOSITION: Closely monitor in the medical floor. PT, OT prior to discharge. Social service to help with discharge planning. Job ID: [id number] CRISTINA
[2021-12-21] MEDS: LACTATED RINGER'S 1,000 ML IV SCH ×3 (06:14→22:37)
[2021-12-21] MEDS: PIPERACILLIN/TAZOBACTAM 3.375 GM in DEXTROSE 5% 100 ML IV SCH ×2 (08:07→16:28)
[2021-12-21 08:20] LABS: Albumin Globulin Ratio 1.5 (0.9-2); Albumin Level 3.2 gm/dl (3.4-5.0); BUN Creatinine Ratio 16.2 (10-20); Bilirubin,Total 0.8 mg/dl (0.2-1.0); Calcium 8.2 mg/dl (8.5-10.1); Creatinine Clr Calc Pharmacy 68.6 ml/min; Est GFR (African American) 87.2 ml/min; Est GFR (Non-African American) 75.2 ml/min; Globulin 2.2 gm/dl (2.5-4.0); Potassium 3.7 mmol/L (3.5-5.1); Total Protein 5.4 gm/dl (6.0-8.3)
[2021-12-21 09:03] LABS: Basophils # (auto) 0.03 K/uL (0-0.2); Basophils % (auto) 0.2 %; Eosinophils % (auto) 0.7 %; Hematocrit (blood only) 34.1 % (42-52); Hemoglobin 11.6 g/dL (14.0-18.0); Immature Granulocytes # (auto) 0.04 K/uL (0.00-0.02); Immature Granulocytes % (auto) 0.3 %; Lymphocytes # (auto) 1.03 K/uL (1.2-3.4); Lymphocytes % (auto) 7.1 %; Mean Corpuscular Hemoglobin 29.8 pg (25-34); Mean Corpuscular Volume 87.7 fL (80-100); Mean Platelet Volume 9.1 fL (7.4-10.4); Monocytes % (auto) 4.8 %; Neutrophils # (auto) 12.56 K/uL (1.4-6.5); Neutrophils % (auto) 86.9 %; Platelet Count 250 K/uL (130-400); RDW Coefficient of Variation 13.5 % (11.5-14.5); RDW Standard Deviation 43.6 fL (36.4-46.3); Red Blood Count 3.89 M/uL (4.7-6.1); White Blood Count 14.46 K/uL (4.8-10.8)
--- NOTE | 2021-12-21 10:28 | Surgery Progress Note ---
Date of Service December 21, 2021 Assessment & Plan (1) Abnormal CT of the abdomen: Plan: 71 yr old man with possible severe acute cholecystitis on CT scan but minimal pain or tenderness on exam. Blood cultures now with gram negative rods, suggestive of abdominal source. Given his CT findings and blood cultures, more likely the gallbladder is the source of his infection. Discussed my recommendation for proceeding with laparoscopic cholecystectomy today - risks of bleeding, infection, conversion to open, bile leak needing ercp, continued hospital stay for IV antibiotics all reviewed. After discussion, consent was signed. Will plan on OR today. Will cancel HIDA scan. Keep on IV zosyn. Admission and Anticipated Discharge Date Admission Date: December 20, 2021 Subjective Confusion and mental status changes have improved. Had another bout of rigors last night - appreciate medicine consult. Blood cultures are growing gram negative rods. Has some persistent epigastric pain this morning, mild. Not hungry but no nausea either. Review of Systems Review of Systems: All systems reviewed & are unremarkable except as noted in HPI & below Physical Exam Constitutional: WD/WN, vitals as above Eyes: PERRL, conjunctivae normal, anicteric sclerae Neck: trachea midline, no thyromegaly Respiratory: normal respiratory effort, lungs clear to auscultation Cardiovascular: RRR, no murmur, no edema Gastrointestinal (Abdomen): Inspection/Auscultation: abdomen normal to inspection; abdomen not distended Percussion/Palpation: + abdomen tender (mild in right upper quadrant) and abdomen soft; no guarding Musculoskeletal: Extremities: extremities normal to inspection Neurologic: moves all extremities and awake; no focal motor deficits Psychiatric: A+Ox3, euthymic affect Results & Data ([facility]) Vital Signs (Past 12 Hours) Vital Signs Temp Pulse Resp BP Pulse Ox 12/21/21 07:35 37.1 C 68 18 108/58 L 95 Laboratory Results Abnormal lab results 12/20/21 12/20/21 12/20/21 Range/Units 13:25 13:30 13:30 WBC 4.11 L (4.8-10.8) K/uL RBC 4.31 L (4.7-6.1) M/uL Hgb 13.3 L (14.0-18.0) g/dL Hct 37.9 L (42-52) % Neut # (Auto) (1.4-6.5) K/uL Lymph # (Auto) 0.32 L (1.2-3.4) K/uL [place] # (Auto) 0.01 L (0.11-0.59) K/uL Immature Gran # (Auto) (0.00-0.02) K/uL ABG pH (7.35-7.45) ABG pCO2 (35-46) mmHg ABG pO2 (80-95) mmHg ABG O2 Saturation (90-95) % VBG pH (7.36-7.41) VBG pCO2 (38-50) mmHg Chlor[place] (98-107) mmol/L BUN/Creatinine Ratio 21.3 H (10-20) Glucose 123 H (70-99(Fasting)) mg/dl POC Glucose 132 H (70-99) mg/dl Calcium (8.5-10.1) mg/dl AST 44 H (13-39) U/L ALT (7-52) U/L Alkaline Phosphatase (34-104) U/L Total Protein (6.0-8.3) gm/dl Albumin (3.4-5.0) gm/dl Globulin (2.5-4.0) gm/dl Ur Specific [place] (1.000-1.030) Urine Protein (Negative) U Epithel Cells (Auto) (0-5) /lpf 12/20/21 12/20/21 12/20/21 Range/Units 14:57 15:37 23:16 WBC (4.8-10.8) K/uL RBC (4.7-6.1) M/uL Hgb (14.0-18.0) g/dL Hct (42-52) % Neut # (Auto) (1.4-6.5) K/uL Lymph # (Auto) (1.2-3.4) K/uL [place] # (Auto) (0.11-0.59) K/uL Immature Gran # (Auto) (0.00-0.02) K/uL ABG pH 7.50 H (7.35-7.45) ABG pCO2 29 L (35-46) mmHg ABG pO2 69 L (80-95) mmHg ABG O2 Saturation 95.6 H (90-95) % VBG pH 7.48 H (7.36-7.41) VBG pCO2 35 L (38-50) mmHg Chloride (98-107) mmol/L BUN/Creatinine Ratio (10-20) Glucose (70-99(Fasting)) mg/dl POC Glucose (70-99) mg/dl Calcium (8.5-10.1) mg/dl AST (13-39) U/L ALT (7-52) U/L Alkaline Phosphatase (34-104) U/L Total Protein (6.0-8.3) gm/dl Albumin (3.4-5.0) gm/dl Globulin (2.5-4.0) gm/dl Ur Specific [place] 1.033 H (1.000-1.030) Urine Protein 1+ H (Negative) U Epithel Cells (Auto) 5-10 H (0-5) /lpf 12/21/21 12/21/21 Range/Units 07:39 07:39 WBC 14.46 H D (4.8-10.8) K/uL RBC 3.89 L (4.7-6.1) M/uL Hgb 11.6 L (14.0-18.0) g/dL Hct 34.1 L (42-52) % Neut # (Auto) 12.56 H (1.4-6.5) K/uL Lymph # (Auto) 1.03 L (1.2-3.4) K/uL [place] # (Auto) 0.70 H (0.11-0.59) K/uL Immature Gran # (Auto) 0.04 H (0.00-0.02) K/uL ABG pH (7.35-7.45) ABG pCO2 (35-46) mmHg ABG pO2 (80-95) mmHg ABG O2 Saturation (90-95) % VBG pH (7.36-7.41) VBG pCO2 (38-50) mmHg Chloride 110 H (98-107) mmol/L BUN/Creatinine Ratio (10-20) Glucose 111 H (70-99(Fasting)) mg/dl POC Glucose (70-99) mg/dl Calcium 8.2 L (8.5-10.1) mg/dl AST (13-39) U/L ALT 64 H (7-52) U/L Alkaline Phosphatase 107 H (34-104) U/L Total Protein 5.4 L (6.0-8.3) gm/dl Albumin 3.2 L (3.4-5.0) gm/dl Globulin 2.2 L (2.5-4.0) gm/dl Ur Specific [place] (1.000-1.030) Urine Protein (Negative) U Epithel Cells (Auto) (0-5) /lpf
--- NOTE | 2021-12-21 12:03 | Hospitalist Progress Note ---
Date of Service December 21, 2021 Assessment & Plan (1) Acute cholecystitis: (2) Abnormal CT of the abdomen: Plan: Blood work on admission was unremarkable However, Has leukocytosis this morning with WBC of 14k from 4K yesterday Blood cultures drawn on admission yesterday now growing GNR in [address] abd on admission had reported acute cholecystitis Continue zosyn Repeat blood cultures Will follow up blood culture speciation and sensitivities Discussed with Primary surgeon. Patient planned for lap cholecystectomy Will continue to follow patient while inpatient Admission and Anticipated Discharge Date Admission Date: December 20, 2021 Subjective Patient seen and examined Denied any fevers, chills Denied nausea, vomiting, abd pain, diarrhea Denied cough, chest pain, shortness of breath, palpitation Denied dysuria, freq, urgency Physical Exam Constitutional: + well hydrated; no acute distress Eyes: PERRL, conjunctivae normal, anicteric sclerae ENMT: external ear and nose normal, oropharynx normal Respiratory: normal respiratory effort, lungs clear to auscultation Cardiovascular: Rate/Rhythm: regular rate and regular rhythm S1 S2 Gastrointestinal (Abdomen): Abd is not distended, soft, normal bowel sounds, mild right upper tenderness, no rebound Musculoskeletal: no cyanosis or clubbing, extremities motor strength 5/5 Neurologic: PERRL, EOMI, accommodation nl, no face palsy, no dysarthria Psychiatric: A+Ox3, euthymic affect Results & Data Results & Data ([facility]) Vital Signs (Past 12 Hours) Vital Signs Temp Pulse Resp BP Pulse Ox 12/21/21 07:35 37.1 C 68 18 108/58 L 95 Laboratory Results Abnormal lab results 12/20/21 12/20/21 12/20/21 Range/Units 13:30 14:57 15:37 WBC (4.8-10.8) K/uL RBC (4.7-6.1) M/uL Hgb (14.0-18.0) g/dL Hct (42-52) % Neut # (Auto) (1.4-6.5) K/uL Lymph # (Auto) (1.2-3.4) K/uL [place] # (Auto) (0.11-0.59) K/uL Immature Gran # (Auto) (0.00-0.02) K/uL ABG pH (7.35-7.45) ABG pCO2 (35-46) mmHg ABG pO2 (80-95) mmHg ABG O2 Saturation (90-95) % VBG pH 7.48 H (7.36-7.41) VBG pCO2 35 L (38-50) mmHg Chloride (98-107) mmol/L BUN/Creatinine Ratio 21.3 H (10-20) Glucose 123 H (70-99(Fasting)) mg/dl Calcium (8.5-10.1) mg/dl AST 44 H (13-39) U/L ALT (7-52) U/L Alkaline Phosphatase (34-104) U/L Total Protein (6.0-8.3) gm/dl Albumin (3.4-5.0) gm/dl Globulin (2.5-4.0) gm/dl Ur Specific [place] 1.033 H (1.000-1.030) Urine Protein 1+ H (Negative) U Epithel Cells (Auto) 5-10 H (0-5) /lpf 12/20/21 12/21/21 12/21/21 Range/Units 23:16 07:39 07:39 WBC 14.46 H D (4.8-10.8) K/uL RBC 3.89 L (4.7-6.1) M/uL Hgb 11.6 L (14.0-18.0) g/dL Hct 34.1 L (42-52) % Neut # (Auto) 12.56 H (1.4-6.5) K/uL Lymph # (Auto) 1.03 L (1.2-3.4) K/uL [place] # (Auto) 0.70 H (0.11-0.59) K/uL Immature Gran # (Auto) 0.04 H (0.00-0.02) K/uL ABG pH 7.50 H (7.35-7.45) ABG pCO2 29 L (35-46) mmHg ABG pO2 69 L (80-95) mmHg ABG O2 Saturation 95.6 H (90-95) % VBG pH (7.36-7.41) VBG pCO2 (38-50) mmHg Chloride 110 H (98-107) mmol/L BUN/Creatinine Ratio (10-20) Glucose 111 H (70-99(Fasting)) mg/dl Calcium 8.2 L (8.5-10.1) mg/dl AST (13-39) U/L ALT 64 H (7-52) U/L Alkaline Phosphatase 107 H (34-104) U/L Total Protein 5.4 L (6.0-8.3) gm/dl Albumin 3.2 L (3.4-5.0) gm/dl Globulin 2.2 L (2.5-4.0) gm/dl Ur Specific [place] (1.000-1.030) Urine Protein (Negative) U Epithel Cells (Auto) (0-5) /lpf
[2021-12-21] MEDS ORDERED: BUPIVACAINE 0.5 % 5 MG/1 ML MPF 30ML VIAL ONE (12:20)
[2021-12-21] MEDS ORDERED: PROPOFOL IV EMULSION 10 MG/ML 20 ML VIAL IV ONE (12:23)
[2021-12-21] MEDS ORDERED: LIDOCAINE 2% 2 ML VIAL/AMP(20MG/ML) INFIL ONE (12:23)
[2021-12-21] MEDS ORDERED: fentaNYL citrate 100 MCG/2 ML VIAL ONE ×2 (12:23→13:09)
[2021-12-21] MEDS ORDERED: ROCURONIUM BROMIDE 10 MG/ML 5 ML VIAL IV ONE ×4 (12:24→13:26)
[2021-12-21] MEDS ORDERED: ONDANSETRON INJ 2 MG/ML 2 ML VIAL IV PRN (12:40)
[2021-12-21] MEDS ORDERED: HYDROmorphone INJ 2 MG/ML SYR/VIAL IV PRN (12:40)
[2021-12-21] MEDS ORDERED: fentaNYL citrate 100 MCG/2 ML VIAL IV PRN (12:40)
[2021-12-21] MEDS ORDERED: ATROPINE SULFATE 0.1 MG/ML 10ML SYR IV PRN (12:40)
[2021-12-21] MEDS ORDERED: ePHEDrine sulfate 50 MG/ML AMP IV PRN (12:40)
--- NOTE | 2021-12-21 12:40 | Anesthesiology Consultation ---
Date of Service December 21, 2021 Assessment & Plan ASA ASA2 Proposed Anesthesia Anesthesia Type: General Risk / Benefits Reviewed With: PT / POA / Parent / Guardian, Accepts Plan and Informed Consent Obtained History Surgery Operation Date: 12/21/21 12:00 Proposed Procedures p Laparoscopic Cholecystectomy - Nelida Mccollum MD Height/Weight Height: 5 ft 10 in Weight: 84.5 kg Allergies Allergy/AdvReac Type Severity Reaction Status Date / Time No Known Allergies Allergy Verified 12/20/21 17:26 Medications Home Medications Medication Instructions Recorded Confirmed Last Taken ascorbic acid (vitamin C) 500 mg 0 mg PO DAILY 12/08/21 12/20/21 Unknown tablet (Vitamin C) cholecalciferol (vitamin D3) 25 0 mcg PO DAILY 12/08/21 12/20/21 Unknown mcg (1,000 unit) tablet (Vitamin D3) multivitamin 1 tab PO DAILY 12/08/21 12/20/21 Unknown omega-3 fatty acids 1,000 mg PO 2XWK 12/08/21 12/20/21 Unknown Active Medications Generic Name Dose Route Start Last Admin Trade Name Phoebe PRN Reason Stop Dose Admin Lactated Ringer's 1,000 mls @ 100 mls/hr 12/20/21 20:40 12/21/21 06:14 Lr IV 01/19/22 20:39 100 mls/hr .Q10H DEENA Administration Piperacillin Sod/Tazobactam 115 mls @ 28.75 mls/hr 12/21/21 00:00 12/21/21 12:07 Sod 3.375 gm/ Dextrose IV 12/31/21 00:00 Infused Q8H DEENA Infusion Protocol NPO Date Last Intake of Fluids: 12/20/21 Time Last Intake of Fluids: 23:59 Date Last Intake of Solids: 12/20/21 Time Last Intake of Solids: 23:59 Past Medical History Medical History No significant past medical history Exercise / Class Metabolic Activity II 4-5 Yardwork/Stairs/Walk up hill Past Anesthesia History No Hx of Anesthesia Complications and No Family Hx of Anesthesia Complications History of PONV No Hx of PONV and No Hx of Motion Sickness Social History Smoking Status: Current every day smoker tobacco type: cigarettes Smoking cigarettes per day: 10 Do You Dip or Chew Tobacco: No Hx Alcohol Use: No Hx Substance Use: No Review of Systems denies fever/cough/ colds/ chest pain/ SOB/ NAZANIN denies NAZANIN Physical Exam Vital Signs Last Vital Signs Temp 37.1 C 12/21/21 07:35 Pulse 68 12/21/21 07:35 Resp 18 12/21/21 07:35 BP 108/58 L 12/21/21 07:35 Pulse Ox 95 12/21/21 07:35 ENMT Mouth: no TMJ abnormality and no dentition abnormality Thyromental Distance: > or= 3.5 Finger Breadths Mallampati Class: II Neck neck extension not limited Respiratory normal respiratory effort; no respiratory distress Auscultation: lungs clear to auscultation bilaterally Cardiovascular Rate/Rhythm: regular rate and regular rhythm Neurologic moves all extremities Psychiatric Orientation: alert and oriented x 3 Testing Laboratory Results 12/21/21 07:39 12/21/21 07:39 Urine Color Dark Yellow 12/20/21 14:57 Urine Appearance Clear (Clear) 12/20/21 14:57 Urine pH 5.0 (4.5-7.5) 12/20/21 14:57 Ur Specific [place] 1.033 (1.000-1.030) H 12/20/21 14:57 Urine Protein 1+ (Negative) H 12/20/21 14:57 Urine Glucose (UA) Negative (Negative) 12/20/21 14:57 Urine Ketones Negative (Negative) 12/20/21 14:57 Urine Nitrite Negative (Negative) 12/20/21 14:57 Ur Leukocyte Esterase Negative (Negative) 12/20/21 14:57 Urine WBC (Auto) 1-5 /hpf (0-5) 12/20/21 14:57 Urine RBC (Auto) 0-4 /hpf (0-4) 12/20/21 14:57 U Hyaline Cast (Auto) 1-5 /lpf (0-5) 12/20/21 14:57 U Epithel Cells (Auto) 5-10 /lpf (0-5) H 12/20/21 14:57 Urine Bacteria (Auto) Negative (Negative) 12/20/21 14:57 12/20/21 14:59 Anaerobic Blood Culture - Preliminary Blood Gram negative bacilli 12/20/21 15:38 Aerobic Blood Culture - Preliminary Blood Gram negative bacilli Anaerobic Blood Culture - Preliminary Gram negative bacilli
[2021-12-21] MEDS ORDERED: ONDANSETRON INJ 2 MG/ML 2 ML VIAL ONE (13:09)
[2021-12-21] MEDS ORDERED: DEXAMETHASONE SOD INJ 4 MG/ML VIAL ONE (13:09)
[2021-12-21] MEDS ORDERED: HYDROmorphone INJ 2 MG/ML SYR/VIAL ONE (13:27)
[2021-12-21] MEDS ORDERED: NEOSTIGMINE METHYLSULFATE 1 MG/ML 10ML VIAL ONE (14:36)
[2021-12-21] MEDS ORDERED: GLYCOPYRROLATE 0.2 MG/ML VIAL ONE (14:36)
--- NOTE | 2021-12-21 15:07 | Operative Report ---
Post Operative Report Pre & Post Diagnosis Operation Date: 12/21/21 12:00 Pre-Op Diagnosis: Acute cholecystitis Post-Op Diagnosis: Acute gangrenous cholecystitis I identified the patient and participated in the time-out.: Yes Procedure Operation Date: 12/21/21 12:00 Actual Procedures p Laparoscopic Cholecystectomy - Nelida Mccollum MD; modifier for increased difficulty Surgeon Nelida Mccollum MD Fine Hairer none Estimated Blood Loss 5 Findings See Below (severe gangrenous cholecystitis) severe acute cholecystitis with walled off gallbladder Fluids 1200 cc Specimens gallbladder Drains 1 10 flat DUYEN Anesthesia Type General Complications none Disposition Accompanied Patient To Recovery: No Indications 71 yr old man who presented with rigors and CT scan showing severe acute cholecystitis. Minimal pain or nausea. Found to have gram negative bacteremia. Consented for laparoscopic cholecystectomy. Description of Procedure He was on zosyn preoperatively. After the induction of GET, he had placement of SCD's. His abdomen was steriley prepped and draped. A supraumbilical incision was made and a veress needle placed into the peritoneal cavity. This was tested with the saline drop test. Initial pressure was 4 mmHg and this was taken to 15 mmHg. A 5 mm trocar was placed with the camera through the trocar. Three additional trocars were placed under direct vision - two 5 mm in the right upper quadrant and a 11 mm in the epigastrium. The gallbladder initially could not be visualized but there was a large inflammatory mass in the right upper quadrant. Dissection of this revealed adhesions of colon, omentum and duodenum to a severely inflamed gallbladder. These adhesions were bluntly peeled away. The gallbladder was very thickened and difficult to grasp. A needle was used to aspirate but minimal contents noted. The gallbaldder was retracted over the large liver. The wall was extremely thickened and the peritoneum was carefully opened and tediously dissected free. This added an additional 1 hour to the procedure due to the extreme difficulty with grasping the gallbladder (ultimately a burton was used), the severe scarring/ inflammatory change and the inflammatory adhesions. The cystic artery was identified and clipped / divided. The cystic duct was ultimately identified and critical views seen. This was clipped and divided. The gallbladder was dissected off of the liver - this again was very difficult with lack of a good plane. At one point, the burton had torn a hole in the gallbladder and some necrotic tissue drained but there was no evidence of stones. The back wall of the gallbladder was grasped in this area and tediously dissected off of the liver. Once removed, it was placed in an endobag and removed through the epigastric incision. The abdomen was irrigated and no evidence of active bleeding was noted. A 10 flat DUYEN drain was brought out through the most lateral port site and tied with a nylon suture. The drain was placed in the gallbladder fossa. The trocars were removed. 30 cc of 0.5% marcaine were used for local anesthesia. The fascia of the epigastric incision was closed with interrupted 0 vicryl suture. The skin of all incisions was closed with 4-0 vicryl subcuticular suture. Steristrips and a sterile dressing were applied. He was awakened and taken to recovery in stable condition. I attest to the content of the Intraoperative Record and any orders documented therein. Any exceptions are noted below.
[2021-12-21] MEDS ORDERED: ALBUT/IPRATROP 3MG/0.5MG NEB 3 ML VIAL NEB STA (15:10)
[2021-12-21] MEDS ORDERED: ALBUT/IPRATROP 3MG/0.5MG NEB 3 ML VIAL ONE (15:13)
--- NOTE | 2021-12-21 15:47 | Anesthesiology Progress Note ---
Date of Service December 21, 2021 Anesthesia Post Procedure Vital Signs Vital Signs: Temp Pulse Pulse Pulse Pulse Pulse Resp 12/21/21 15:40 36.3 C L 77 18 12/21/21 15:30 79 18 12/21/21 15:24 75 16 12/21/21 15:20 73 17 12/21/21 15:10 72 16 12/21/21 15:02 36.4 C L 74 17 12/21/21 07:35 37.1 C 68 18 12/20/21 22:03 37.0 C 80 12/20/21 21:00 12/20/21 20:30 37.2 C 80 16 12/20/21 20:00 80 18 12/20/21 19:11 83 16 12/20/21 18:00 36.9 C 84 20 12/20/21 16:28 36.7 C 89 19 BP BP BP Pulse Ox 12/21/21 15:40 130/58 L 91 12/21/21 15:30 137/64 92 12/21/21 15:24 100 12/21/21 15:20 136/67 97 12/21/21 15:10 136/62 98 12/21/21 15:02 130/60 99 12/21/21 07:35 108/58 L 95 12/20/21 22:03 148/71 H 96 12/20/21 21:00 106/56 L 12/20/21 20:30 93/54 L 96 12/20/21 20:00 90/55 L 96 12/20/21 19:11 109/63 97 12/20/21 18:00 134/72 96 12/20/21 16:28 111/53 L 98 Transfer of Care Handoff Completed per policy Notes Mental Status: alert / awake / arousable and participated in evaluation Patient Amnestic to Procedure: Yes Nausea / Vomiting: adequately controlled Pain: adequately controlled Airway Patency, RR, SpO2: stable & adequate BP & HR: stable & adequate Hydration State: stable & adequate Anesthetic Complications: no major complications apparent and Pt Satisfied with anesthetic care
[2021-12-22] MEDS: PIPERACILLIN/TAZOBACTAM 3.375 GM in DEXTROSE 5% 100 ML IV SCH ×4 (00:12→23:55)
[2021-12-22] MEDS: ACETAMINOPHEN 325 MG TAB PO PRN ×3 (02:47→20:01)
[2021-12-22 07:12] LABS: Hematocrit (blood only) 35.2 % (42-52); Hemoglobin 11.8 g/dL (14.0-18.0); Mean Corpuscular Hemoglobin 29.7 pg (25-34); Mean Corpuscular Hgb Conc 33.5 g/dL (32-36); Mean Corpuscular Volume 88.7 fL (80-100); Mean Platelet Volume 9.2 fL (7.4-10.4); Platelet Count 263 K/uL (130-400); RDW Coefficient of Variation 13.4 % (11.5-14.5); RDW Standard Deviation 43.9 fL (36.4-46.3); Red Blood Count 3.97 M/uL (4.7-6.1); White Blood Count 14.16 K/uL (4.8-10.8)
[2021-12-22 07:37] LABS: Calcium 8.3 mg/dl (8.5-10.1); Creatinine Clr Calc Pharmacy 67.9 ml/min; Est GFR (African American) 86.2 ml/min; Est GFR (Non-African American) 74.3 ml/min; Potassium 4.1 mmol/L (3.5-5.1)
[2021-12-22] MEDS: LACTATED RINGER'S 1,000 ML IV SCH ×2 (08:29→18:09)
--- NOTE | 2021-12-22 08:34 | Surgery Progress Note ---
Date of Service December 22, 2021 Assessment & Plan (1) Acute cholecystitis: Plan: As he is on brillanta/ aspirin, we discussed increased risk of bleeding with urgent surgery. Given option of delaying surgery to elective setting given pain has improved. However, he is worried about eating and would prefer to have surgery today despite increased risk of complications with urgent procedure. For lap carly today. Admission and Anticipated Discharge Date Admission Date: December 20, 2021 Subjective Pain has resolved. Still has not eaten anything and is very worried pain will return when he eats. No new complaints Physical Exam Constitutional: WD/WN, vitals as above Respiratory: normal respiratory effort, lungs clear to auscultation Cardiovascular: RRR, no murmur, no edema Gastrointestinal (Abdomen): soft,obese, nontender Neurologic: alert, no gross motor defects Results & Data ([facility]) Vital Signs (Past 12 Hours) Vital Signs Temp Pulse Pulse Resp BP Pulse Ox 12/22/21 07:45 37.1 C 72 18 130/66 96 12/22/21 04:20 37.1 C 72 16 112/63 95 12/21/21 22:39 37.2 C 78 15 125/65 96 Laboratory Results Abnormal lab results 12/21/21 12/22/21 12/22/21 Range/Units 07:39 07:01 07:01 WBC 14.46 H D 14.16 H (4.8-10.8) K/uL RBC 3.89 L 3.97 L (4.7-6.1) M/uL Hgb 11.6 L 11.8 L (14.0-18.0) g/dL Hct 34.1 L 35.2 L (42-52) % Neut # (Auto) 12.56 H (1.4-6.5) K/uL Lymph # (Auto) 1.03 L (1.2-3.4) K/uL [place] # (Auto) 0.70 H (0.11-0.59) K/uL Immature Gran # (Auto) 0.04 H (0.00-0.02) K/uL Chloride 110 H (98-107) mmol/L Glucose 121 H (70-99(Fasting)) mg/dl Calcium 8.3 L (8.5-10.1) mg/dl
--- NOTE | 2021-12-22 09:41 | Surgery Progress Note ---
Date of Service December 22, 2021 Assessment & Plan (1) Acute cholecystitis: Plan: 1) s/p lap carly for gangrenous cholecystitis. Will advance diet as tolerated. Keep DUYEN in until bowel activity returns. 2) bacteremia - GNR, likely GB source. Will need antibiotics for total 10 day course - plan to continue IV antibiotics for 48-72 hrs prior to conversion to oral Increase activity as tolerated. Admission and Anticipated Discharge Date Admission Date: December 20, 2021 Subjective Feeling well. Still with postop pain in the abdomen but manageable. Tolerating clear liquids with no nausea or vomiting. Physical Exam Constitutional: WD/WN, vitals as above Respiratory: normal respiratory effort, lungs clear to auscultation Cardiovascular: RRR, no murmur, no edema Gastrointestinal (Abdomen): soft, mild distention, quiet bowel tones, dressings dry, DUYEN with serosanguinous drainage - 95 cc Musculoskeletal: Extremities: extremities normal to inspection Neurologic: awake; no focal motor deficits Psychiatric: A+Ox3, euthymic affect Results & Data ([place]) Vital Signs (Past 12 Hours) Vital Signs Temp Pulse Pulse Resp BP Pulse Ox 12/22/21 07:45 37.1 C 72 18 130/66 96 12/22/21 04:20 37.1 C 72 16 112/63 95 12/21/21 22:39 37.2 C 78 15 125/65 96 Laboratory Results Abnormal lab results 12/22/21 12/22/21 Range/Units 07:01 07:01 WBC 14.16 H (4.8-10.8) K/uL RBC 3.97 L (4.7-6.1) M/uL Hgb 11.8 L (14.0-18.0) g/dL Hct 35.2 L (42-52) % Chloride 110 H (98-107) mmol/L Glucose 121 H (70-99(Fasting)) mg/dl Calcium 8.3 L (8.5-10.1) mg/dl
--- NOTE | 2021-12-22 14:59 | Hospitalist Progress Note ---
Date of Service December 22, 2021 Assessment & Plan (1) Acute cholecystitis: (2) Abnormal CT of the abdomen: Plan: Blood work on admission was unremarkable However, Has leukocytosis with WBC of 14k from 4K on admission Blood cultures drawn on admission yesterday now growing GNR in [address] abd on admission had reported acute cholecystitis S/p lap cholecystectomy yesterday Per op report, patient had gangrenous cholecystitis Continue zosyn for now Follow up blood cultures speciation and sensitivities as this will aid in transitioning to po antibiotics Repeat blood culture remain negative Will continue to follow patient while inpatient Admission and Anticipated Discharge Date Admission Date: December 20, 2021 Subjective Patient seen and examined Reports mild abd pain at op site Denied any fevers, chills Denied nausea, vomiting Tolerating clears. Reports he passed flatus this afternoon. No BM yet Denied cough, chest pain, shortness of breath, palpitation Denied dysuria, freq, urgency Physical Exam Constitutional: + well hydrated; no acute distress Eyes: PERRL, conjunctivae normal, anicteric sclerae ENMT: external ear and nose normal, oropharynx normal Respiratory: normal respiratory effort, lungs clear to auscultation Cardiovascular: Rate/Rhythm: regular rate and regular rhythm S1 S2 Gastrointestinal (Abdomen): Soft, nondistended, +bowel sounds, DUYEN drain in situ Musculoskeletal: no cyanosis or clubbing, extremities motor strength 5/5 Neurologic: PERRL, EOMI, accommodation nl, no face palsy, no dysarthria Psychiatric: A+Ox3, euthymic affect Results & Data Results & Data ([facility]) Vital Signs (Past 12 Hours) Vital Signs Temp Pulse Pulse Resp BP Pulse Ox 12/22/21 11:24 37.1 C 66 18 130/70 97 12/22/21 07:45 37.1 C 72 18 130/66 96 12/22/21 04:20 37.1 C 72 16 112/63 95 Laboratory Results Abnormal lab results 12/22/21 12/22/21 Range/Units 07:01 07:01 WBC 14.16 H (4.8-10.8) K/uL RBC 3.97 L (4.7-6.1) M/uL Hgb 11.8 L (14.0-18.0) g/dL Hct 35.2 L (42-52) % Chloride 110 H (98-107) mmol/L Glucose 121 H (70-99(Fasting)) mg/dl Calcium 8.3 L (8.5-10.1) mg/dl
[2021-12-23] MEDS: LACTATED RINGER'S 1,000 ML IV SCH ×2 (03:58→14:12)
[2021-12-23 07:30] LABS: Hematocrit (blood only) 33.3 % (42-52); Hemoglobin 11.6 g/dL (14.0-18.0); Mean Corpuscular Hemoglobin 30.5 pg (25-34); Mean Corpuscular Hgb Conc 34.8 g/dL (32-36); Mean Corpuscular Volume 87.6 fL (80-100); Mean Platelet Volume 9.2 fL (7.4-10.4); Platelet Count 272 K/uL (130-400); RDW Coefficient of Variation 13.4 % (11.5-14.5); RDW Standard Deviation 43.3 fL (36.4-46.3); White Blood Count 10.69 K/uL (4.8-10.8)
[2021-12-23 07:56] LABS: BUN Creatinine Ratio 12.2 (10-20); Calcium 8.4 mg/dl (8.5-10.1); Creatinine Clr Calc Pharmacy 82.8 ml/min; Est GFR (African American) 101.7 ml/min; Est GFR (Non-African American) 87.7 ml/min; Potassium 3.6 mmol/L (3.5-5.1)
[2021-12-23] MEDS: PIPERACILLIN/TAZOBACTAM 3.375 GM in DEXTROSE 5% 100 ML IV SCH (09:20)
--- NOTE | 2021-12-23 13:25 | Hospitalist Progress Note ---
Date of Service December 23, 2021 Assessment & Plan (1) Acute cholecystitis: (2) Abnormal CT of the abdomen: Plan: Blood work on admission was unremarkable However, Has leukocytosis with WBC of 14k from 4K on admission Blood cultures drawn on admission yesterday now growing GNR in [address] abd on admission had reported acute cholecystitis S/p lap cholecystectomy on 12/21/21 Per op report, patient had gangrenous cholecystitis POD #2 Has been on zosyn Initial blood culture grew pansensitive Klebsiella pneumonia Repeat BCx negative after 48h. Leukocytosis resolved Discussed with Dr Mckeon. Reagan deescalate to po augmentin. Ensure 10-14 days of antibiotics treatment Will continue to follow patient while inpatient Admission and Anticipated Discharge Date Admission Date: December 22, 2021 Subjective Patient seen and examined Reports only mild abd pain at op site Denied any fevers, chills Denied nausea, vomiting Tolerating diet. Had BM today Denied cough, chest pain, shortness of breath, palpitation Denied dysuria, freq, urgency Physical Exam Constitutional: + well hydrated; no acute distress Eyes: PERRL, conjunctivae normal, anicteric sclerae ENMT: external ear and nose normal, oropharynx normal Respiratory: normal respiratory effort, lungs clear to auscultation Cardiovascular: Rate/Rhythm: regular rate and regular rhythm S1 S2 Gastrointestinal (Abdomen): Soft, not distended, mild tenderness at op site. DUYEN drain in situ Musculoskeletal: no cyanosis or clubbing, extremities motor strength 5/5 Neurologic: PERRL, EOMI, accommodation nl, no face palsy, no dysarthria Psychiatric: A+Ox3, euthymic affect Results & Data Results & Data ([facility]) Vital Signs (Past 12 Hours) Vital Signs Temp Pulse Resp BP Pulse Ox 12/23/21 07:55 37 C 79 18 157/78 H 95 Laboratory Results Abnormal lab results 12/23/21 12/23/21 Range/Units 07:12 07:12 RBC 3.80 L (4.7-6.1) M/uL Hgb 11.6 L (14.0-18.0) g/dL Hct 33.3 L (42-52) % Chloride 108 H (98-107) mmol/L Calcium 8.4 L (8.5-10.1) mg/dl
--- NOTE | 2021-12-23 13:35 | Surgery Progress Note ---
Date of Service December 23, 2021 Assessment & Plan (1) Acute cholecystitis: Plan: POD # 2 s/p lap carly for for gangrenous cholecystitis. -afebrile - minimal postop pain - +flatus - mild nausea Plan: Continue pain management as needed continue reg diet continue rex drain, will go home with rex drain continue antibiotics, transitioning to oral abx this evening will need 10 days will consult case management as patient states he lives in his car increase activity, oob to chair and ambulate Incentive (2) Bacteremia: Plan: GNR- pansensitive transition to oral antibiotics for [address] Mckeon was present during my examination and agrees with above. Admission and Anticipated Discharge Date Admission Date: December 22, 2021 Subjective feeling better today abdominal soreness, not real pain, controlled mild nausea, no vomiting no chest pain or shortness of breath urinating without difficulty ambulating only to bathroom Physical Exam Constitutional: WD/WN, vitals as above no acute distress and not ill appearing Neck: normal visual inspection; + trachea not midline Respiratory: normal respiratory effort; no respiratory distress and no labored breathing Gastrointestinal (Abdomen): Inspection/Auscultation: abdomen normal to inspection, + abdominal surgical incision (covered with dry dressings) and + abdominal surgical drain present (serosanguineous, bloody); abdomen not distended Percussion/Palpation: abdomen soft; abdomen nontender, no guarding and abdomen not rigid Skin: no rashes, warm and dry Psychiatric: A+Ox3, euthymic affect Results & Data ([facility]) Vital Signs (Past 12 Hours) Vital Signs Temp Pulse Resp BP Pulse Ox 12/23/21 07:55 37 C 79 18 157/78 H 95 Laboratory Results 12/23/21 12/23/21 Range/Units 07:12 07:12 WBC 10.69 (4.8-10.8) K/uL RBC 3.80 L (4.7-6.1) M/uL Hgb 11.6 L (14.0-18.0) g/dL Hct 33.3 L (42-52) % MCV 87.6 (80-100) fL MCH 30.5 (25-34) pg MCHC 34.8 (32-36) g/dL RDW Std Deviation 43.3 (36.4-46.3) fL RDW Coeff of Andrew 13.4 (11.5-14.5) % Plt Count 272 (130-400) K/uL MPV 9.2 (7.4-10.4) fL Sodium 138 (136-145) mmol/L Potassium 3.6 (3.5-5.1) mmol/L Chloride 108 H (98-107) mmol/L Carbon Dioxide 23 (21-32) mmol/L Anion Gap 7 (3-11) BUN 10 (6-23) mg/dl Creatinine 0.82 (0.6-1.4) mg/dl Est Cr Clr Drug Dosing 82.8 ml/min Est GFR ( Amer) 101.7 ml/min Est GFR (Non-Af Amer) 87.7 ml/min BUN/Creatinine Ratio 12.2 (10-20) Glucose 95 (70-99(Fasting)) mg/dl Calcium 8.4 L (8.5-10.1) mg/dl
[2021-12-23] MEDS: AMOXICILLIN/CLAVULANATE 875 MG TAB PO SCH (17:24)
[2021-12-24 07:26] LABS: Hematocrit (blood only) 32.1 % (42-52); Hemoglobin 11.1 g/dL (14.0-18.0); Mean Corpuscular Hemoglobin 30.2 pg (25-34); Mean Corpuscular Hgb Conc 34.6 g/dL (32-36); Mean Corpuscular Volume 87.2 fL (80-100); Mean Platelet Volume 9.6 fL (7.4-10.4); Platelet Count 291 K/uL (130-400); RDW Coefficient of Variation 13.3 % (11.5-14.5); Red Blood Count 3.68 M/uL (4.7-6.1); White Blood Count 8.29 K/uL (4.8-10.8)
[2021-12-24 08:04] LABS: BUN Creatinine Ratio 14.1 (10-20); Calcium 8.4 mg/dl (8.5-10.1); Creatinine Clr Calc Pharmacy 87.1 ml/min; Est GFR (African American) 103.8 ml/min; Est GFR (Non-African American) 89.6 ml/min; Potassium 3.6 mmol/L (3.5-5.1)
[2021-12-24] MEDS: AMOXICILLIN/CLAVULANATE 875 MG TAB PO SCH ×2 (09:18→21:55)
--- NOTE | 2021-12-24 13:35 | Hospitalist Progress Note ---
Date of Service December 24, 2021 Assessment & Plan (1) Acute cholecystitis: (2) Abnormal CT of the abdomen: Plan: Blood work on admission was unremarkable However, Has leukocytosis with WBC of 14k from 4K on admission Blood cultures drawn on admission yesterday now growing GNR in [address] abd on admission had reported acute cholecystitis S/p lap cholecystectomy on 12/21/21 Per op report, patient had gangrenous cholecystitis POD #3 Was initially on zosyn Initial blood culture grew pansensitive Klebsiella pneumonia Repeat BCx negative. Leukocytosis resolved Antibiotics has been deescalated to po Augmentin. Ensure 10-14 days of antibiotics treatment Primary Surgical team working on disposition Admission and Anticipated Discharge Date Admission Date: December 22, 2021 Subjective Patient seen and examined Reports only mild abd discomfort at op site Denied any fevers, chills Denied nausea, vomiting Tolerating diet well Denied cough, chest pain, shortness of breath, palpitation Denied dysuria, freq, urgency Physical Exam Constitutional: + well hydrated; no acute distress Eyes: PERRL, conjunctivae normal, anicteric sclerae ENMT: external ear and nose normal, oropharynx normal Respiratory: normal respiratory effort, lungs clear to auscultation Cardiovascular: Rate/Rhythm: regular rate and regular rhythm S1 S2 Gastrointestinal (Abdomen): Soft, not distended, mild tenderness at op site. DUYEN drain in situ Musculoskeletal: no cyanosis or clubbing, extremities motor strength 5/5 Neurologic: PERRL, EOMI, accommodation nl, no face palsy, no dysarthria Psychiatric: A+Ox3, euthymic affect Results & Data Results & Data ([facility]) Vital Signs (Past 12 Hours) Vital Signs Temp Pulse Resp BP Pulse Ox 12/24/21 07:45 37.1 C 73 18 137/69 94 Laboratory Results Abnormal lab results 12/24/21 12/24/21 Range/Units 06:54 06:54 RBC 3.68 L (4.7-6.1) M/uL Hgb 11.1 L (14.0-18.0) g/dL Hct 32.1 L (42-52) % Chloride 111 H (98-107) mmol/L Glucose 106 H (70-99(Fasting)) mg/dl Calcium 8.4 L (8.5-10.1) mg/dl
--- NOTE | 2021-12-24 15:35 | Surgery Progress Note ---
Date of Service December 24, 2021 Assessment & Plan (1) Acute cholecystitis: Plan: POD # 3 s/p lap carly for for gangrenous cholecystitis. -afebrile - minimal postop pain - +flatus - rex drain with serosanguineous output, serous drainage surrounding drain site with minimal erythema Plan: Continue pain management as needed continue reg diet continue rex drain, will go home with rex drain continue antibiotics tota of 10 days on discharge increase activity, oob to chair and ambulate Incentive spirometry Possible discharge home this evening or tomorrow (2) Bacteremia: Plan: GNR- pansensitive afebrile no leukocytosis repeat BC NTD transitioned to oral antibiotics, needs [address] Mckeon was present during my examination and agrees with above. Admission and Anticipated Discharge Date Admission Date: December 22, 2021 Subjective feeling okay mild abdominal soreness at drain site no n,v tolerating diet ambulating without difficulty small bowel movements x 2 yesterday, passing gas Physical Exam Constitutional: WD/WN, vitals as above no acute distress and not ill appearing Neck: normal visual inspection and trachea midline Respiratory: normal respiratory effort; no respiratory distress, no labored breathing and no retractions Gastrointestinal (Abdomen): Inspection/Auscultation: abdomen normal to inspection, + abdominal surgical incision (dressings clean/dry/intact) and + abdominal surgical drain present (serosanguineous); abdomen not distended Percussion/Palpation: abdomen soft; abdomen nontender, no guarding, abdomen not rigid and abdomen not firm Skin: no rashes, warm and dry no jaundice Psychiatric: Orientation: alert and oriented x 3 Results & Data ([facility]) Vital Signs (Past 12 Hours) Vital Signs Temp Pulse Pulse Resp BP Pulse Ox 12/24/21 15:16 37 C 75 16 135/72 95 12/24/21 07:45 37.1 C 73 18 137/69 94 Laboratory Results 12/24/21 12/24/21 Range/Units 06:54 06:54 WBC 8.29 (4.8-10.8) K/uL RBC 3.68 L (4.7-6.1) M/uL Hgb 11.1 L (14.0-18.0) g/dL Hct 32.1 L (42-52) % MCV 87.2 (80-100) fL MCH 30.2 (25-34) pg MCHC 34.6 (32-36) g/dL RDW Std Deviation 43.0 (36.4-46.3) fL RDW Coeff of Andrew 13.3 (11.5-14.5) % Plt Count 291 (130-400) K/uL MPV 9.6 (7.4-10.4) fL Sodium 141 (136-145) mmol/L Potassium 3.6 (3.5-5.1) mmol/L Chloride 111 H (98-107) mmol/L Carbon Dioxide 23 (21-32) mmol/L Anion Gap 7 (3-11) BUN 11 (6-23) mg/dl Creatinine 0.78 (0.6-1.4) mg/dl Est Cr Clr Drug Dosing 87.1 ml/min Est GFR ( Amer) 103.8 ml/min Est GFR (Non-Af Amer) 89.6 ml/min BUN/Creatinine Ratio 14.1 (10-20) Glucose 106 H (70-99(Fasting)) mg/dl Calcium 8.4 L (8.5-10.1) mg/dl
[2021-12-25] MEDS: AMOXICILLIN/CLAVULANATE 875 MG TAB PO SCH ×2 (09:07→16:31)
--- NOTE | 2021-12-25 14:11 | Hospitalist Progress Note ---
Date of Service December 25, 2021 Assessment & Plan (1) Acute cholecystitis: (2) Abnormal CT of the abdomen: Plan: Acute cholecystitis -s/p lap cholecystectomy 12/21/21 -tolerating diet -still with DUYEN drain, unfortunately, since patient is homeless--> he can not leave here with drain in place, will need to remain here until drain can be removed Klebsiella bacteremia -pansensitive -currently on zosyn, recommend finishing 14 day course of Augmentin at discharge Patient is medically stable for discharge from medicine perspective, final discharge plan per primary service. Admission and Anticipated Discharge Date Admission Date: December 22, 2021 Subjective Feels well, tolerating diet Has had BM since surgery, "it's nothing to be proud of, but I had one" Apparently, patient lives in his car (per nursing) Physical Exam Physical Exam: appears well, no acute distress, pleasant Respiratory: breathing comfortably on room air, no wheezing/rhonchi/rales Cardiovascular: regular rate and rythm, no murmurs/rubs/gallops Gastrointestinal (Abdomen): soft, non tender, +DUYEN drain with serosanguinous fluid Musculoskeletal: no edema, no cyanosis Neurologic: awake, alert, spontaneously moving extremities Results & Data Results & Data ([facility]) Vital Signs (Past 12 Hours) Vital Signs Temp Pulse Resp BP Pulse Ox 12/25/21 11:00 36.7 C 70 18 134/70 95 12/25/21 07:00 37.2 C 69 18 132/62 97 Medications Administered Current Inpatient Medications Acetaminophen (Acetaminophen 325 Mg Tab) 650 mg PO Q6H PRN PRN Reason: Pain & Pre PT Stop: 01/19/22 20:39 Last Admin: 12/22/21 20:01 Dose: 650 mg Documented by: Amoxicillin/Clavulanate Potassium (Amoxicillin/Clavulanate 875 Mg Tab) 1 tab PO BID [facility]; Protocol Stop: 01/06/22 17:59 Last Admin: 12/25/21 09:07 Dose: 1 tab Documented by: Morphine Sulfate (Morphine Sulfate 2 Mg/Ml Carp) 2 mg IV Q3H PRN PRN Reason: Pain (1,2,3,4,5) & Pre PT Stop: 01/03/22 20:39 Morphine Sulfate (Morphine Sulfate 4 Mg/Ml 1 Ml Carp\\Vial) 4 mg IV Q3H PRN PRN Reason: Pain (6,7,8,9,10) Stop: 01/03/22 20:39 Ondansetron HCl (Ondansetron Inj 2 Mg/Ml 2 Ml Vial) 4 mg IV Q4H PRN PRN Reason: Nausea And Vomiting Stop: 01/19/22 20:39 Oxycodone/Acetaminophen (Oxycodone/Acetaminophen 5mg/325mg Tab) 1 tab PO Q4H PRN PRN Reason: MODERATE Pain (4,5,6) & Pre PT Stop: 01/03/22 20:39 Oxycodone/Acetaminophen (Oxycodone/Acetaminophen 5mg/325mg Tab) 2 tab PO Q4H PRN PRN Reason: SEVERE Pain (7,8,9,10) Stop: 01/03/22 20:39
--- NOTE | 2021-12-25 16:30 | Surgery Progress Note ---
Date of Service December 25, 2021 Assessment & Plan (1) Acute cholecystitis: Plan: POD # 4 s/p lap carly for for gangrenous cholecystitis. -afebrile - minimal postop pain - +flatus - rex drain with serosanguineous output, serous drainage surrounding drain site with minimal erythema Plan: Discharge home today. REX drain was removed dressing changes as needed Home with 10-day course of Augmentin Follow-up in surgery office in 1 week Discharge instructions reviewed with patient Discussed with Dr. Mckeon who agrees with above. (2) Bacteremia: Plan: GNR- pansensitive afebrile no leukocytosis repeat BC NTD transitioned to oral antibiotics, needs [address] Mckeon was present during my examination and agrees with above. Admission and Anticipated Discharge Date Admission Date: December 22, 2021 Subjective Having some sharp instances of right upper quadrant pain at the site of drain. No nausea no vomiting tolerating diet no chest pain or shortness of breath. Urinating without difficulty. Physical Exam Constitutional: WD/WN, vitals as above no acute distress and not ill appearing Neck: normal visual inspection and trachea midline Respiratory: normal respiratory effort; no respiratory distress, no labored breathing and no retractions Gastrointestinal (Abdomen): Inspection/Auscultation: abdomen normal to inspection, + abdominal surgical incision (Clean dry intact with Steri-Strips present) and + abdominal surgical drain present (Serosanguineous); abdomen not distended Percussion/Palpation: + abdomen tender (At drain site) and abdomen soft; no guarding and abdomen not rigid Skin: no rashes, warm and dry no jaundice Psychiatric: A+Ox3, euthymic affect Results & Data ([facility]) Vital Signs (Past 12 Hours) Vital Signs Temp Pulse Pulse Resp BP Pulse Ox 12/25/21 16:10 36.7 C 73 73 18 147/76 H 97 12/25/21 15:54 36.7 C 73 18 147/76 H 97 12/25/21 11:00 36.7 C 70 18 134/70 95 12/25/21 07:00 37.2 C 69 18 132/62 97
--- NOTE | 2022-01-09 11:00 | Discharge Summary ---
Date of Service January 09, 2022 Admission HPI Per Admitting Provider 71 yr old man who was brought by ambulance to the ER when a coworker found him in his car, confused and with severe shakes/ rigors. Pt notes his memory is limited for the event and he feels "unfocused". He does recall that he had some epigastric abdominal pain intermittently in the few days prior to the event. No nausea or vomiting at that time but he did have a bout of emesis in the ambulance. He was seen in the ER on 12/15/2020 and again on 12/08/2021 for epigastric abdominal pain. CT scans on both occasions were negative. He denies any change in bowel habits. No family history of gallbladder disease. No prior abdominal operations. Currently, he denies any abdominal pain. No nausea or vomiting. No further chills. Main remaining symptom is that of memory issues with loss of focus/ cloudy feeling. Principal Diagnosis Acute gangrenous cholecystitis Bacteremia Discharge Data Allergies Allergy/AdvReac Type Severity Reaction Status Date / Time No Known Allergies Allergy Verified 12/20/21 17:26 Consultations 12/20/21 17:56 Consult General Surgery Stat 12/20/21 22:18 Consult Hospitalist Stat Procedures Performed Operation Date: 12/21/21 12:00 Actual Procedures p Laparoscopic Cholecystectomy - Nelida Mccollum MD Ordered Studies 12/20/21 14:54 CT abd pelvis wo con Stat CT cervical spine wo con Stat CT head/brain wo con Stat Hospital Course (1) Acute cholecystitis: Patient was admitted to medical/surgical floor and started on IV antibiotics and kept NPO. HIDA scan initially ordered to confirm acute cholecystitis however blood cultures came back with gram negative rods likely gallbladder sourse and was consented for laparoscopic cholecystectomy. He was taken to operating room for lap carly by Dr. eNlida Mccollum. Found to have acute gangrenous cholecystitis. Patient tolerated procedure well and was transferred back to medical/surgical floor for postop care. Medicine was consulted and followed patient during his hospital stay. A duyen drain was placed and kept to b ulb suction. Diet was advanced as tolerated. IV zosyn was continued for 3 days and then transitioned to oral Augmentin on POD # 3. Patient did well postoperatively. DUYEN drain was removed prior to discharge and he was discharged home with 10 day course of oral Augmentin. (2) Bacteremia: GNR- pansensitive hopsital course as above Total Time Total Time Spent Total Time Spent (In Minutes): 1 hour Total Time Includes: Examination of the Patient, Discharge Planning, Medication Reconciliation and Communication With Other Providers Discharge Plan Discharge Items Patient Disposition: Home - Self-Care Reason For Visit: SEIZURE Discharge Diagnosis: Acute gangrenous cholecystitis Bactermia Activity: Per Instructions section Non-emergency contact: Primary Care Provider and Surgeon Call non-emergency contact if: you have any medication questions, your pain is not controlled, your pain is worsening, you have a fever, your temperature is above 101, your wound has increased redness, your wound has increased drainage and your wound pain has increased Follow-up/Referrals: [facility] General Surgery [Other] - 01/01/22 1:15 pm (Date & Time 01/01/2022 1:15 PM Provider Nurse Gen Prabhakar [facility] Department General Surgery, [facility] For Drain Removal) PCP,NO [Primary Care Provider] - Diet: Regular Addtl Attending Provider Instructions: Post-Surgical ~Discharge Instructions Activity Recommendations: - lifting limitation: (10 pounds for 2 weeks), - exercise/sex/sports limit: (nonstrenuous for 2 weeks), - driving or machine use limit: (none for 1 week or until pain free and no longer taking narcotic pain medication), - Shower/bathe limit: (may shower beginning tomorrow) Diet: - Resume previous diet SPECIAL CARE INSTRUCTIONS: - May shower in 24 hours. Let water run over area and pat dry. - Leave steri strips on for one week and then remove. - Change dressings on prior drain site as needed and daily to keep clean and dry. - Call the surgeon's office with any questions or concerns - - (ex. temperature higher than 101 degrees F, excessive bleeding or pain). MEDICATIONS: - Resume previous medications unless instructed otherwise by your surgeon. - May take extra strength Tylenol and Ibuprofen as needed for mild to moderate pain - 650 mg Tylenol every 6 hours as needed - Ibuprofen 600 mg every 6 hours as needed (take with food) - Antibiotics will be prescribed for 10 days. Take entire course as directed. FOLLOW UP VISIT: - If not already scheduled, please call the office to schedule a one week follow-up appointment. Office number Pending Studies at Discharge: Yes (gallbladder pathology) Stand-Alone Forms: My [facility], Smoking Cessation Medications and DC Order Prescriptions: New amoxicillin-pot clavulanate 875-125 mg tablet 1 tab PO BID Qty: 21 RF: 0 Continued multivitamin Tablet 1 tab PO DAILY RF: 0 ascorbic acid (vitamin C) [Vitamin C] 500 mg Tablet 0 mg PO DAILY RF: 0 omega-3 fatty acids Capsule 1,000 mg PO 2XWK RF: 0 cholecalciferol (vitamin D3) [Vitamin D3] 25 mcg (1,000 unit) Tablet 0 mcg PO DAILY RF: 0 Discharge Orders: Discharge Order (Routine); Ordered 12/25/21 Ordered By: Rozina Landa/Other Patient Handouts: Anatomy of the Digestive System, ED Cholecystitis, Confirmed Admission Data Admit Date/Time: 12/22/21 15:06 Attending Provider: Nelida Mccollum Admit Provider: Nelida Mccollum Primary Care Provider: PCP,NO Other Providers: Nelida Mccollum ; Brooklynn Coker ; Carl Rubin ; Negin Almodovar ; Louisa Cuellar ; Lourdes Sanchez ; Rosemary Dahl ; Alessia Thornton ; Darrell Edge ; Andrea Sanchez ; Humza Gaines ; Angela Lara HPercy ; Darlyn Burton ; Jimbo Jones ; Lashaun Clark ; Felicity Ramos ; James Garcia ; Jacquelin Hopper ; Anushka Simpson ; Breanna Townsend ; Isabela Rodríguez I. ; Osmin Hackett ; Holden Gonzalez ; Mary Lazo ; Samir Anderson ; [employer]ak Rdz ; Arcadio Howell Other Interventions: Discharge Summary Assessment (RN) Last Done: 12/25/21 16:10
== END 2021-12-25 16:42 | disposition home or self-care (01) | DRG 418 ==
LOC: 3N 13:15 → ED 13:15 → 3N 20:10